=== PATIENT | female | born 1960 | race Caucasian/White ===

== ENCOUNTER → 2017-07-10 10:36 | Outpatient (CLI) | payer OTHER, SELFPAY ==
[2017-07-10 11:26] LABS: Absolute Lymphocyte Count 2.42 X10^3/ul (0.83-4.51); Basophil# 0.03 X10^3/uL; Basophil% 0.4 % (0-1); Eosinophils% 1.4 % (0-5); Hematocrit 41.8 % (37-47); Hemoglobin 13.7 g/dl (12.0-15.0); Lymphocyte # 2.42 X10^3/ul (4.0); Mean Corp Hgb Conc 32.8 g/gl (32-36); Mean Corpuscular Hgb 30.5 pg (27.0-32.0); Mean Corpuscular Volume 93.1 fL (81-99); Mean Platelet Vol. 9.3 fl (6.2-12.0); Monocyte# 0.57 X10^3/uL; Neutrophil # 3.98 X10^3/uL (2.7-7.7); Neutrophil % 56.1 % (47-70); Platelet Count 270 K/mm3 (150-450); RBC Distribution Width CV 13.1 % (11.6-14.6); RBC Distribution Width SD 44.5 fl (35.1-43.9); Red Blood Count 4.49 M/mm3 (4.2-5.4); White Blood Count 7.1 K/mm3 (4.4-11.0)
[2017-07-10 11:28] LABS: POSITIVE COUNT NO; POSITIVE DIFFERENTIAL NO; POSITIVE MORPHOLOGY NO
[2017-07-10 11:58] LABS: AST(SGOT) 18 U/L (15-37); Alanine Aminotransfer ALT/SGPT 39 U/L (13-56); Albumin, Serum 3.6 g/dL (3.2-5.0); Alkaline Phosphatase 116 U/L (45-117); Anion Gap 9 (5-15); BUN 15 mg/dL (7-18); BUN/Creat Ratio 17.5 RATIO (10-20); Bilirubin, Direct 0.16 mg/dL (0.00-0.30); Calcium,Total 8.5 mg/dL (8.5-10.1); Chloride 108 mmol/L (98-107); Cholesterol 178 mg/dL (200); Creatinine, Serum 0.86 mg/dL (0.55-1.02); EST Glomerular Filtration Rate 73 mL/min (>60); Est Glom Filt Rate - Afr Amer 88 mL/min (>60); Globulin 4.3 g/dL (2.2-4.2); Glucose 95 mg/dL (74-106); High Density Lipoprotein 44 mg/dL; Protein, Total 7.9 g/dL (6.4-8.2); Sodium Level 143 mmol/L (136-145); Thyroid Stim Hormone (TSH) 2.14 uIU/mL (0.358-3.74); Triglycerides 118 mg/dL; Very Low Density Lipoprotein 24 mg/dL (5-40)
== END ==
PROVIDERS: Family Provider Family Medicine; PCP Family Medicine; Visit Provider Internal Medicine Cardiovascular Disease
DX: R53.83 Other fatigue (principal)
CPT/HCPCS: 80048; 80061; 80076; 84443; 85025

== ENCOUNTER → 2017-09-15 09:30 | Outpatient (CLI) | payer OTHER, SELFPAY ==
--- NOTE | 2017-09-15 09:30 | DT_ITS ---
This patient was seen during an EMR downtime September 13, 2017 - September 20, 2017. This patient may have a combination of paper and electronic documentation or all paper documentation. All documentation is viewable within the e-chart portion of [facility] for each patient visit.
--- NOTE | 2017-09-15 09:30 | LES_PTH ---
PATIENT: TRISHA NARVAEZ LOC: [facility] U#:[id number] AGE/SX: 64/F ROOM: RE09/15/[address]: Dr. Varsha Harrell MD : 1960 BED: DIS: SPEC #: [id number] RECD: 09/15/17 09:38 STATUS: LATRELL RAISA #: [id number] MARIE: 09/15/17 09:[address]: Varsha Harrell DEPT: SURGICAL PATHOLOGY RECD BY: Jeovanny Hernandez Tissues: Skin of face, NOS Procedures: Surgery Specimen Level IV HEADER OPERATION: Removal of facial lesion PRE-OP DIAGNOSIS: Neoplasm of uncertain behavior TISSUE SUBMITTED: Lesion left cheek MICROSCOPIC DIAGNOSIS Left cheek lesion, biopsy: Inflamed seborrheic keratosis. Negative for malignancy. SJ:vicki 09/21/17 MICROSCOPIC DESCRIPTION Slides are reviewed. GROSS DESCRIPTION Received in fixative is one container labeled with the patient's name and designated lesion left cheek. The specimen consists of a piece of reyna-white skin measuring 1 x 0.7 x 0.2 cm. The specimen is inked and submitted entirely in one cassette. It will be bisected at the time of embedding. / SJ:rg TC:1 CPT: 84765
== END ==
PROVIDERS: Visit Provider Family Medicine
DX: D48.7 Neoplasm of uncertain behavior of other specified sites (principal)
CPT/HCPCS: 88305

== ENCOUNTER → 2019-03-02 10:09 | Outpatient (CLI) | payer OTHER, SELFPAY ==
[2018-06-13 08:45] VITALS: BMI 38.9
== END ==
PROVIDERS: Family Provider Family Medicine; PCP Family Medicine; Referring Provider Family Medicine; Visit Provider Family Medicine
DX: R31.9 Hematuria, unspecified (principal)
CPT/HCPCS: 87086; 87088; 87186

== ENCOUNTER → 2019-05-08 07:31 | Outpatient (CLI) | payer OTHER, SELFPAY ==
[2018-06-13 08:45] VITALS: BMI 38.9
--- NOTE | 2019-05-08 07:32 | BI_ITS ---
MAMMOGRAPHY - BILATERAL SCREENING REASON FOR EXAM: Female, 58 years old. Routine annual screening examination. PERTINENT HISTORY: Non-contributory. TECHNIQUE: Digital bilateral breast sridhar (3D mammographic acquisition) in the CC and MLO projections. 2-D mediolateral oblique (MLO) and craniocaudad (CC) views of both breasts were obtained. CAD: Full Field Digital Mammography with Computer Added Detection was performed. COMPARISON: Comparison is made with prior examination dated January 15, 2017 and November 10, 2012. FINDINGS: Breast Composition: The breasts are heterogeneously dense, which may obscure small masses. There are no dominant masses or suspicious calcifications. Stable benign appearing bilateral axillary lymph nodes. No other significant abnormalities are identified. There has been no significant change since the prior study. BI/SCREEN MAMM (CAD) W/SRIDHAR BILAT IMPRESSION: Stable bilateral screening mammogram. Yearly follow-up mammogram recommended. (A) ASSESSMENT CATEGORY: BIRADS Category 2: Benign. A letter regarding these results will be sent to the patient by the facility within 30 days. Approximately 10% of breast cancers are not detected by mammography. A normal mammogram should not delay biopsy of a clinically suspicious abnormality. [id number] Electronically Signed: Vick Moya, at 8:45 EST , Service support ,
== END ==
PROVIDERS: Family Provider Family Medicine; PCP Family Medicine; Referring Provider Obstetrics & Gynecology; Visit Provider Obstetrics & Gynecology
DX: Z12.31 Encounter for screening mammogram for malignant neoplasm of breast (principal)
CPT/HCPCS: 77063; 77067

== ENCOUNTER → 2019-05-22 15:59 | Outpatient (CLI) | payer OTHER, SELFPAY ==
[2018-06-13 08:45] VITALS: BMI 38.9
[2019-05-22 18:12] LABS: Absolute Lymphocyte Count 2.25 X10^3/uL (0.83-4.51); Absolute Neutrophil Count 4.2 X10^3/uL (2.0-7.7); Basophil# 0.03 X10^3/uL; Basophil% 0.4 % (0-1); Eosinophil# 0.07 X10^3/uL; Hematocrit 43.3 % (37-47); Hemoglobin 14.1 g/dL (12.0-15.0); Lymphocyte # 2.25 X10^3/ul (4.0); Lymphocyte % 31.4 % (19-41); Mean Corp Hgb Conc 32.6 g/dL (32-36); Mean Corpuscular Hgb 30.5 pg (27.0-32.0); Mean Corpuscular Volume 93.7 fL (81-99); Mean Platelet Vol. 9.7 fl (6.2-12.0); Monocyte# 0.55 X10^3/uL; Monocyte% 7.7 % (0-10); NRBC Flagged by Analyzer 0 % (0-5); Neutrophil # 4.24 X10^3/uL (2.7-7.7); Neutrophil % 59.1 % (47-70); Platelet Count 295 K/mm3 (150-450); RBC Distribution Width CV 12.8 % (11.6-14.6); RBC Distribution Width SD 43.9 fl (35.1-43.9); Red Blood Count 4.62 M/mm3 (4.2-5.4); White Blood Count 7.2 K/mm3 (4.4-11.0)
[2019-05-22 18:37] LABS: ALB/GLOB Ratio 0.9 RATIO (0.9-2.4); AST(SGOT) 20 U/L (15-37); Alanine Aminotransfer ALT/SGPT 41 U/L (13-56); Albumin, Serum 3.9 g/dL (3.2-5.0); Alkaline Phosphatase 101 U/L (45-117); Anion Gap 5 (5-15); BUN 15 mg/dL (7-18); BUN/Creat Ratio 14.6 RATIO (10-20); Calcium,Total 9.5 mg/dL (8.5-10.1); Chloride 106 mmol/L (98-107); Creatinine, Serum 1.03 mg/dL (0.55-1.02); EST Glomerular Filtration Rate 59 mL/min (>60); Est Glom Filt Rate - Afr Amer 71 mL/min (>60); Globulin 4.4 g/dL (2.2-4.2); Glucose 115 mg/dL (74-106); Protein, Total 8.3 g/dL (6.4-8.2); Sodium Level 138 mmol/L (136-145); Thyroid Stim Hormone (TSH) 4.89 uIU/mL (0.358-3.74)
== END ==
PROVIDERS: PCP Family Medicine; Referring Provider Family Medicine; Visit Provider Family Medicine
DX: I10 Essential (primary) hypertension (principal); R63.5 Abnormal weight gain
CPT/HCPCS: 36415; 80053; 84443; 85025

== ENCOUNTER → 2019-08-16 16:08 | Outpatient (CLI) | payer OTHER, SELFPAY ==
[2019-06-16 08:31] VITALS: BMI 38.1
[2019-08-16 17:46] LABS: Absolute Lymphocyte Count 2.38 X10^3/uL (0.83-4.51); Absolute Neutrophil Count 5.4 X10^3/uL (2.0-7.7); Basophil# 0.04 X10^3/uL; Basophil% 0.5 % (0-1); Eosinophil# 0.06 X10^3/uL; Eosinophils% 0.7 % (0-5); Hematocrit 42.6 % (37-47); Hemoglobin 13.8 g/dL (12.0-15.0); Lymphocyte # 2.38 X10^3/ul (4.0); Lymphocyte % 27.3 % (19-41); Mean Corp Hgb Conc 32.4 g/dL (32-36); Mean Corpuscular Hgb 30.6 pg (27.0-32.0); Mean Corpuscular Volume 94.5 fL (81-99); Monocyte% 9.2 % (0-10); NRBC Flagged by Analyzer 0 % (0-5); Neutrophil # 5.43 X10^3/uL (2.7-7.7); Neutrophil % 62.1 % (47-70); Platelet Count 273 K/mm3 (150-450); RBC Distribution Width CV 13.2 % (11.6-14.6); RBC Distribution Width SD 45.1 fl (35.1-43.9); Red Blood Count 4.51 M/mm3 (4.2-5.4); White Blood Count 8.7 K/mm3 (4.4-11.0)
[2019-08-16 18:10] LABS: ALB/GLOB Ratio 0.8 RATIO (0.9-2.4); AST(SGOT) 18 U/L (15-37); Alanine Aminotransfer ALT/SGPT 37 U/L (13-56); Albumin, Serum 3.6 g/dL (3.2-5.0); Alkaline Phosphatase 104 U/L (45-117); Anion Gap 6 (5-15); BUN 15 mg/dL (7-18); BUN/Creat Ratio 16.7 RATIO (10-20); Chloride 105 mmol/L (98-107); EST Glomerular Filtration Rate 69 mL/min (>60); Est Glom Filt Rate - Afr Amer 83 mL/min (>60); Globulin 4.3 g/dL (2.2-4.2); Glucose 98 mg/dL (74-106); Potassium 4.3 mmol/L (3.5-5.1); Protein, Total 7.9 g/dL (6.4-8.2); Sodium Level 139 mmol/L (136-145); Thyroid Stim Hormone (TSH) 1.33 uIU/mL (0.358-3.74)
== END ==
PROVIDERS: PCP Family Medicine; Referring Provider Family Medicine; Visit Provider Family Medicine
DX: I10 Essential (primary) hypertension (principal); R63.5 Abnormal weight gain
CPT/HCPCS: 36415; 80053; 84443; 85025

== ENCOUNTER 2019-09-20 15:00 | Outpatient (RCR) | payer OTHER, SELFPAY ==
[2019-06-16 08:31] VITALS: BMI 38.1
--- NOTE | 2019-08-09 16:53 | HP.PTEVAL ---
Patient's Visit Information TRISHA NARVAEZ is a 58 year old F referred to Physical Therapy by Landen Chavez MD with a diagnosis of LUMBAR RADICULOPATHY. Date of Evaluation: 08/09/19 Physical Therapist: Doug Her, PT, Cert MDT, OCS - Visit Plan Frequency: 2x /Week Duration: 4 Weeks Plan: PT INTERVENTIONS ROBERT EX'S,DLS ABD/BACK,POSTURAL EX'S,MANUAL THERAPY ,MODALTIES - Subjective This 58 y/o female presents to physical therapy with lumbar radiculopathy. Patient to has had lumbar pain with radicular right leg since June . Patient symptoms where incidous onset. Patient seen tried injections in gluteus for bursitus. Then seen DR Chavez tried 5 day pack predisone. Aggraveting factors driving,turning to right ,sitting,putting on socks.Alleviating factors walking,predisone,ice pack. C/O parathesia right foot. Coughing/sneezing -. Bowel/bladder -. Symptoms affects sleeping. Patient pain affects ADL's ,job demnads and housework tasks. Patient symptoms affects QOL.Pain locates lateral hip mdial thigh,medial tibia. 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 SOCAIL: single - Pain Right Back Pain Intensity (Out of 10): 7 Pain Intensity Range: 10 Right Lower Extremity Pain Intensity (Out of 10): 7 Pain Intensity Range: 10 - Objective POSTURE: mild foward posture. GAIT: antagic gait right side mild foward posture reciprocal pattern. NEURO: c/o parathesia/tingling right foot,reflexes L3-4,L4-5 2/3. SYMMTRIES: right leg shorter uses heel lift. PALPATION: UNREMARKABLE. MMT: quads/hams/hip 4/5,ankle 4/5. LUMBAR ROM: flexion min loss,extension min loss,sie glides min loss. FLEXABLITY: HAMS WFL - Special Tests L/S Slump test left side: Negative L/S Slump test right side: Negative L/S Left Straight Leg Raise: Negative L/S Right Straight Leg Raise: Negative Lumbar Standing: Flexion - Mechanical Response: No effect Lumbar Standing: Flexion - Symptoms During Testing: Increases Lumbar Standing: Flexion - Symptoms After Testing: Worse Lumbar Standing: Extension - Mechanical Response: No effect Lumbar Standing: Extension - Symptoms During Testing: Decreases Lumbar Standing: Extension - Symptoms After Testing: Better Lumbar Standing: Right Side Glides - Mechanical Response: No effect Lumbar Standing: Right Side [place] - Symptoms During Testing: Increases Lumbar Standing: Right Side [place] - Symptoms After Testing: No worse Lumbar Standing: Left Side [place] - Mechanical Response: No effect Lumbar Standing: Left Side [place] - Symptoms During Testing: No effect Lumbar Standing: Left Side [place] - Symptoms After Testing: No effect Lumbar Lying: Flexion - Mechanical Response: No effect Lumbar Lying: Flexion - Symptoms During Testing: Increases Lumbar Lying: Flexion - Symptoms After Testing: Worse Lumbar Lying: Extension - Mechanical Response: No effect Lumbar Lying: Extension - Symptoms During Testing: Decreases Lumbar Lying: Extension - Symptoms After Testing: Better - Goals Goal 1:: Patient be Independant with HEP Goal Time Frame: 4-6 Weeks Goal 2:: Patient improve posture/body mechanics for ADLS' Goal Time Frame: 4-6 Weeks Goal 3:: Patient to decrease lumbar pain by 50% or > to improve FUNCTION. Goal Time Frame: 4-6 Weeks Goal 4:: Patient improve lumbar ROM for function of recovery. Goal Time Frame: 4-6 Weeks Goal 5:: Patient d/c to prohalaxis Goal Time Frame: 4-6 Weeks Goal 6:: Patient improve back owestry score by 5 points or > to improve QOL. Goal Time Frame: 4-6 Weeks - Rehabilitation Potential Physical Therapy Diagnosis: Patient impression with lumbar radiculopathy with derrangement below knee L3-4 disc with pain worse with postion bending ,sitting ,bettter with walking thus benifit from skilled PT Rehabilitation Potential: Good - Anticipated Interventions Patient/Client Instruction: Educate patient on: Condition, Plan of Care For the Purpose of:: To decrease pain, To increase ROM, To improve muscle performance and motor function, To improve ability to perform ADL's, To increase tolerance to activity/condition/position, To improve ability of physical actions for home/community/work/leisure, To improve health of tissue, To decrease soft tissue restriction, To increase flexibility/ROM, To improve ability to perform tasks related to life management Therapeutic Exercise to Include: Strength training, Body mechanics, Postural training, Flexibilty training, Dynamic Lumbar Stabilization, Robert Exercises For the Purpose of:: To decrease pain, To increase ROM, To improve muscle performance and motor function, To improve ability to perform ADL's, To increase tolerance to activity/condition/position, To improve ability of physical actions for home/community/work/leisure, To improve health of tissue, To decrease soft tissue restriction, To increase flexibility/ROM, To reduce risk of recurrence, To improve ability to perform tasks related to life management Manual Therapy Techniques to Include: Mobilization Comment: LUMBAR For the Purpose of:: To decrease pain, To increase ROM TENS: Yes IF ES: Yes Cryotherapy (ice pack, ice massage): Yes Thermo therapy (hot pack): Yes Ultrasound (thermal/non thermal): Yes For the Purpose of:: To decrease pain, To increase ROM, To improve nutrient delivery to tissue, To increase oxygenation perfusion, To improve health of tissue, To decrease soft tissue restriction, To increase flexibility/ROM Thank you for the opportunity to evaluate your patient. For Medicare and Medicare HMO plans, please review the plan of care and approve it. It will need to be FAXED BACK to us at [phone] for Medicare purposes. For Medicare only, by signing this I certify the plan of care. Please let me know if there are questions or concerns regarding this plan of care. Physician Signature: Date:
--- NOTE | 2019-09-20 15:44 | HP.PTEVAL_ITS ---
Patient's Visit Information TRISHA NARVAEZ is a 59 year old F referred to Physical Therapy by Dr. Landen Chavez MD with a diagnosis of LUMBAR RADICULOPATHY. Date of Evaluation: 08/09/19 Physical Therapist: Doug Her PT, Cert MDT, OCS - Visit Plan Frequency: 2x /Week Duration: 4 Weeks Plan: D/C TO HEP - Subjective This 58 y/o female presents to physical therapy with lumbar radiculopathy. Patient to has had lumbar pain with radicular right leg since June . Patient symptoms where incidous onset. Patient seen tried injections in gluteus for bursitus. Then seen DR Chavez tried 5 day pack predisone. Aggraveting factors driving,turning to right ,sitting,putting on socks.Alleviating factors walking,predisone,ice pack. C/O parathesia right foot. Coughing/sneezing -. Bowel/bladder -. Symptoms affects sleeping. Patient pain affects ADL's ,job demnads and housework tasks. Patient symptoms affects QOL.Pain locates lateral hip mdial thigh,medial tibia. 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 GAIT: antagic gait right side mild foward posture reciprocal pattern. NEURO: c/o parathesia/tingling right foot,reflexes L3-4,L4-5 2/3. SYMMTRIES: right leg shorter uses heel lift. PALPATION: UNREMARKABLE. MMT: quads/hams/hip 4/5,ankle 4/5. LUMBAR ROM: flexion min loss,extension min loss,sie glides min loss. FLEXABLITY: HAMS WFL - Special Tests L/S Slump test left side: Negative L/S Slump test right side: Negative L/S Left Straight Leg Raise: Negative L/S Right Straight Leg Raise: Negative Lumbar Standing: Flexion - Mechanical Response: No effect Lumbar Standing: Flexion - Symptoms During Testing: Increases Lumbar Standing: Flexion - Symptoms After Testing: Worse Lumbar Standing: Extension - Mechanical Response: No effect Lumbar Standing: Extension - Symptoms During Testing: Decreases Lumbar Standing: Extension - Symptoms After Testing: Better Lumbar Standing: Right Side [place] - Mechanical Response: No effect Lumbar Standing: Right Side [place] - Symptoms During Testing: Increases Lumbar Standing: Right Side [place] - Symptoms After Testing: No worse Lumbar Standing: Left Side [place] - Mechanical Response: No effect Lumbar Standing: Left Side [place] - Symptoms During Testing: No effect Lumbar Standing: Left Side [place] - Symptoms After Testing: No effect Lumbar Lying: Flexion - Mechanical Response: No effect Lumbar Lying: Flexion - Symptoms During Testing: Increases Lumbar Lying: Flexion - Symptoms After Testing: Worse Lumbar Lying: Extension - Mechanical Response: No effect Lumbar Lying: Extension - Symptoms During Testing: Decreases Lumbar Lying: Extension - Symptoms After Testing: Better - Goals Goal 1:: Patient be Independant with HEP Goal Time Frame: 4-6 Weeks Goal 2:: Patient improve posture/body mechanics for ADLS' Goal Time Frame: 4-6 Weeks Goal 3:: Patient to decrease lumbar pain by 50% or > to improve FUNCTION. Goal Time Frame: 4-6 Weeks Goal 4:: Patient improve lumbar ROM for function of recovery. Goal Time Frame: 4-6 Weeks Goal 5:: Patient d/c to prohalaxis Goal Time Frame: 4-6 Weeks Goal 6:: Patient improve back owestry score by 5 points or > to improve QOL. Goal Time Frame: 4-6 Weeks - Rehabilitation Potential Physical Therapy Diagnosis: Patient impression with lumbar radiculopathy with derrangement below knee L3-4 disc with pain worse with postion bending ,sitting ,bettter with walking thus benifit from skilled PT Rehabilitation Potential: Good - Anticipated Interventions Patient/Client Instruction: Educate patient on: Condition, Plan of Care For the Purpose of:: To decrease pain, To increase ROM, To improve muscle performance and motor function, To improve ability to perform ADL's, To increase tolerance to activity/condition/position, To improve ability of physical actions for home/community/work/leisure, To improve health of tissue, To decrease soft tissue restriction, To increase flexibility/ROM, To improve ability to perform tasks related to life management Therapeutic Exercise to Include: Strength training, Body mechanics, Postural training, Flexibilty training, Dynamic Lumbar Stabilization, Obdulio Exercises For the Purpose of:: To decrease pain, To increase ROM, To improve muscle performance and motor function, To improve ability to perform ADL's, To increase tolerance to activity/condition/position, To improve ability of physical actions for home/community/work/leisure, To improve health of tissue, To decrease soft tissue restriction, To increase flexibility/ROM, To reduce risk of recurrence, To improve ability to perform tasks related to life management Manual Therapy Techniques to Include: Mobilization Comment: LUMBAR For the Purpose of:: To decrease pain, To increase ROM TENS: Yes IF ES: Yes Cryotherapy (ice pack, ice massage): Yes Thermo therapy (hot pack): Yes Ultrasound (thermal/non thermal): Yes For the Purpose of:: To decrease pain, To increase ROM, To improve nutrient delivery to tissue, To increase oxygenation perfusion, To improve health of tissue, To decrease soft tissue restriction, To increase flexibility/ROM Thank you for the opportunity to evaluate your patient. For Medicare and Medicare HMO plans, please review the plan of care and approve it. It will need to be FAXED BACK to us at [phone] for Medicare purposes. For Medicare only, by signing this I certify the plan of care. Please let me know if there are questions or concerns regarding this plan of care. Physician Signature: Date:
--- NOTE | 2019-09-20 15:44 | HP.PTDCSUM ---
It has been my pleasure to treat TRISHA NARVAEZ referred by Dr. Landen Chavez MD, with the diagnosis of LUMBAR RADICULOPATHY for a total of 9 visit(s). Discharge Date: 09/20/19 Please see the following information for a summary of their discharge status. Subjective: Occassional twinge in back. Did alot driving no pain Right Back Pain Intensity (Out of 10): 0 Right Lower Extremity Pain Intensity (Out of 10): 0 % Improvement: 75 Objective/Function: POSTURE: mild foward posture. GAIT: reciprocal pattern. NEURO: INTACT. MMT: quads/hams/hip 4/5,ankle 4/5. LUMBAR ROM: WFL Goal 1:: Patient be Independant with HEP Goal Progress: Goal Met Goal 2:: Patient improve posture/body mechanics for ADLS' Goal Progress: Goal Met Goal 3:: Patient to decrease lumbar pain by 50% or > to improve FUNCTION. Goal Progress: Goal Met Goal 4:: Patient improve lumbar ROM for function of recovery. Goal Progress: Goal Met Goal 5:: Patient d/c to prohalaxis Goal Progress: Goal Met Goal 6:: Patient improve back owestry score by 5 points or > to improve QOL. Goal Progress: Goal Met Plan: D/C TO HEP Discharge Comments: HEP If there are questions or concerns regarding this patient's physical therapy, please feel free to call me at [phone]. Thank you for the referral of this patient. Sincerely, Doug Her, PT, Cert MDT, OCS
== END 2019-09-20 19:00 | disposition home or self-care (01) ==
LOC: PT 15:00
PROVIDERS: PCP Family Medicine; Referring Provider Family Medicine; Visit Provider Family Medicine
DX: M54.16 Radiculopathy, lumbar region (principal)
CPT/HCPCS: 97014; 97035; 97110; 97162; 97164; G0283

== ENCOUNTER → 2019-10-26 | Outpatient (CLI) | payer OTHER, SELFPAY ==
[2019-10-26 12:24] VITALS: BMI 38.1
[2019-11-10 17:03] LABS: HPV APTIMA, High Risk Negative (Negative)
== END | disposition home or self-care (01) ==
LOC: LABSPEC 17:21
PROVIDERS: PCP Family Medicine; Referring Provider Obstetrics & Gynecology; Visit Provider Obstetrics & Gynecology
DX: Z12.4 Encounter for screening for malignant neoplasm of cervix (principal)
CPT/HCPCS: 87624; 88175; G0145

== ENCOUNTER → 2020-03-13 16:11 | Outpatient (CLI) | payer OTHER, SELFPAY ==
[2020-02-21 11:58] VITALS: BMI 37.9
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
== END ==
PROVIDERS: PCP Family Medicine; Referring Provider Orthopaedic Surgery; Visit Provider Orthopaedic Surgery
DX: M48.061 Spinal stenosis, lumbar region without neurogenic claudication (principal)
CPT/HCPCS: 72148

== ENCOUNTER 2020-05-03 13:35 | Outpatient (RCR) | payer OTHER, SELFPAY | END 2020-05-03 23:59 | LOC: IMMUN 13:35 | PROVIDERS: PCP Family Medicine; Visit Provider Family Medicine | DX: Z23 Encounter for immunization (principal) | CPT/HCPCS: 0011A; 0012A; 91301 ==

== ENCOUNTER → 2020-05-16 07:55 | Outpatient (CLI) | payer OTHER, SELFPAY ==
--- NOTE | 2020-05-16 07:56 | BI_ITS ---
MAMMOGRAPHY - BILATERAL SCREENING REASON FOR EXAM: Female, 59 years old. Routine annual screening examination. PERTINENT HISTORY: Non-contributory. TECHNIQUE: Digital bilateral breast sridhar (3D mammographic acquisition) in the CC and MLO projections. 2-D mediolateral oblique (MLO) and craniocaudad (CC) views of both breasts were obtained. CAD: Full Field Digital Mammography with Computer Added Detection was performed. COMPARISON: Comparison is made with prior study dated 11/06/2019 and 01/15/2017. FINDINGS: Breast Composition: The breasts are heterogeneously dense, which may obscure small masses. 6.4 mm x 8.9 mm well-defined nodule in the inferior medial aspect of the right breast. Correlation with ultrasound is recommended. Stable benign-appearing bilateral axillary lymph nodes. No other significant abnormalities are identified. BI/SCRN MAMM (CAD)W/SRIDHAR BILAT IMPRESSION: 6.4 mm x 8.9 mm well-defined nodule in the inferior medial aspect of the right breast. Ultrasound is recommended. ASSESSMENT CATEGORY: BIRADS Category 0: Incomplete. Need additional imaging evaluation. A letter regarding these results will be sent to the patient by the facility within 30 days. Approximately 10% of breast cancers are not detected by mammography. A normal mammogram should not delay biopsy of a clinically suspicious abnormality. [id number] Electronically Signed: Vick Moya MD at 9:09 EST , Service support ,
== END ==
PROVIDERS: PCP Family Medicine; Referring Provider Obstetrics & Gynecology; Visit Provider Obstetrics & Gynecology
DX: Z12.31 Encounter for screening mammogram for malignant neoplasm of breast (principal); N63.10 Unspecified lump in the right breast, unspecified quadrant
CPT/HCPCS: 77063; 77067

== ENCOUNTER → 2020-05-17 09:25 | Outpatient (CLI) | payer OTHER, SELFPAY ==
--- NOTE | 2020-05-17 09:27 | US_ITS ---
STUDY: ULTRASOUND BREAST - RIGHT REASON FOR EXAM: Female, 59 years old. Abnormal screening mammogram. TECHNIQUE: Axial and longitudinal images of the RIGHT breast were performed with a high resolution ultrasound transducer. # OF IMAGES: 11 COMPARISON: Comparison is made with prior mammogram dated 05/16/2020. FINDINGS: RIGHT Breast: The mammographic abnormality corresponds to a 7 mm x 8 mm x 6 mm cyst at the 4 o''clock position of the breast at 2 cm from the nipple. US/Breast Limited Unilateral IMPRESSION: The mammographic abnormality corresponds to a 7 mm x 8 mm x 6 mm cyst at the 4 o''clock position of the breast at 2 cm from the nipple. ASSESSMENT CATEGORY: BIRADS Category 2: Benign. A letter regarding these results will be sent to the patient by the facility within 30 days. Electronically Signed: Vick Moya MD at 10:41 EST , Service support ,
== END ==
PROVIDERS: PCP Family Medicine; Referring Provider Obstetrics & Gynecology; Visit Provider Obstetrics & Gynecology
DX: R92.8 Other abnormal and inconclusive findings on diagnostic imaging of breast (principal)
CPT/HCPCS: 76642

== ENCOUNTER → 2020-06-17 09:11 | Outpatient (CLI) | payer OTHER, SELFPAY ==
[2020-06-17 08:41] VITALS: BMI 39.2
[2020-06-17 11:44] LABS: AST(SGOT) 21 U/L (15-37); Alanine Aminotransfer ALT/SGPT 43 U/L (13-56); Albumin, Serum 3.7 g/dL (3.2-5.0); Alkaline Phosphatase 110 U/L (45-117); Bilirubin, Direct 0.14 mg/dL (0.00-0.30); Cholesterol 233 mg/dL (200); Globulin 4.5 g/dL (2.2-4.2); High Density Lipoprotein 55 mg/dL; Protein, Total 8.2 g/dL (6.4-8.2); Triglycerides 121 mg/dL; Very Low Density Lipoprotein 24 mg/dL (5-40)
== END ==
PROVIDERS: PCP Family Medicine; Referring Provider Nurse Practitioner Family; Visit Provider Nurse Practitioner Family
DX: E78.5 Hyperlipidemia, unspecified (principal)
CPT/HCPCS: 36415; 80061; 80076

== ENCOUNTER → 2020-07-01 09:35 | Outpatient (CLI) | payer OTHER, SELFPAY ==
[2020-06-17 08:41] VITALS: BMI 39.2
[2020-07-01 12:43] LABS: Anion Gap 6 (5-15); BUN 17 mg/dL (7-18); BUN/Creat Ratio 16.5 RATIO (10-20); Chloride 106 mmol/L (98-107); Cholesterol 173 mg/dL (200); Creatinine, Serum 1.03 mg/dL (0.55-1.02); EST Glomerular Filtration Rate 58 mL/min (>60); Est Glom Filt Rate - Afr Amer 71 mL/min (>60); Glucose 102 mg/dL (74-106); High Density Lipoprotein 41 mg/dL; Sodium Level 140 mmol/L (136-145); T4 Total, Thyroxin 9.1 ug/dL (4.8-13.9); Thyroid Stim Hormone (TSH) 1.76 uIU/mL (0.358-3.74); Triglycerides 216 mg/dL; Very Low Density Lipoprotein 43 mg/dL (5-40)
== END ==
PROVIDERS: PCP Family Medicine; Referring Provider Family Medicine; Visit Provider Family Medicine
DX: I10 Essential (primary) hypertension (principal); E03.9 Hypothyroidism, unspecified
CPT/HCPCS: 36415; 80048; 80061; 84436; 84443

== ENCOUNTER → 2020-09-04 14:52 | Outpatient (CLI) | payer OTHER, SELFPAY ==
[2020-06-17 08:41] VITALS: BMI 39.2
--- NOTE | 2020-09-04 14:55 | RAD_ITS ---
STUDY: X-RAY - RIGHT KNEE REASON FOR EXAM: Female, 60 years old. KNEE PAIN TECHNIQUE: 4 view(s) of the knee. COMPARISON: 11/14/2010 FINDINGS: Normal visualized distal femur. Normal visualized proximal tibia and fibula. Normal proximal tibiofibular articulation. There is moderate degenerative arthrosis of the medial femorotibial compartment with moderate joint space narrowing. There is mild degenerative arthrosis of the lateral femorotibial compartment. There is mild degenerative arthrosis of the patellofemoral articulation. The soft tissue structures are unremarkable. RAD/Knee 4 or More Views IMPRESSION: Degenerative arthrosis. Electronically Signed: Jeovanny Sloan MD at 9:24 EDT Tel , Service support ,
== END ==
PROVIDERS: PCP Family Medicine; Referring Provider Family Medicine; Visit Provider Family Medicine
DX: M17.11 Unilateral primary osteoarthritis, right knee (principal)
CPT/HCPCS: 73564

== ENCOUNTER → 2020-11-07 11:05 | Outpatient (CLI) | payer OTHER, SELFPAY ==
[2020-09-30 09:40] VITALS: BMI 36.3
[2020-11-07 12:17] LABS: Absolute Lymphocyte Count 1.79 X10^3/uL (0.83-4.51); Absolute Neutrophil Count 8.7 X10^3/uL (2.0-7.7); Basophil# 0.03 X10^3/uL; Basophil% 0.3 % (0-1); Eosinophil# 0.06 X10^3/uL; Eosinophils% 0.5 % (0-5); Hematocrit 41.8 % (37-47); Hemoglobin 13.7 g/dL (12.0-15.0); Lymphocyte # 1.79 X10^3/ul (0.83-4.51); Lymphocyte % 15.7 % (19-41); Mean Corp Hgb Conc 32.8 g/dL (32-36); Mean Corpuscular Hgb 30.4 pg (27.0-32.0); Mean Corpuscular Volume 92.7 fL (81-99); Mean Platelet Vol. 9.6 fl (6.2-12.0); Monocyte# 0.77 X10^3/uL; Monocyte% 6.8 % (0-10); NRBC Flagged by Analyzer 0 % (0-5); Neutrophil # 8.68 X10^3/uL (2.7-7.7); Neutrophil % 76.3 % (47-70); Platelet Count 277 K/mm3 (150-450); RBC Distribution Width CV 13.3 % (11.6-14.6); RBC Distribution Width SD 45.2 fl (35.1-43.9); Red Blood Count 4.51 M/mm3 (4.2-5.4); White Blood Count 11.4 K/mm3 (4.4-11.0)
[2020-11-07 12:47] LABS: ALB/GLOB Ratio 0.9 RATIO (0.9-2.4); AST(SGOT) 16 U/L (15-37); Alanine Aminotransfer ALT/SGPT 40 U/L (13-56); Albumin, Serum 3.7 g/dL (3.2-5.0); Alkaline Phosphatase 109 U/L (45-117); Anion Gap 6 (5-15); BUN 12 mg/dL (7-18); BUN/Creat Ratio 13.3 RATIO (10-20); Calcium,Total 8.9 mg/dL (8.5-10.1); Chloride 105 mmol/L (98-107); EST Glomerular Filtration Rate 68 mL/min (>60); Est Glom Filt Rate - Afr Amer 82 mL/min (>60); Globulin 4.3 g/dL (2.2-4.2); Glucose 91 mg/dL (74-106); Potassium 4.1 mmol/L (3.5-5.1); Sodium Level 140 mmol/L (136-145)
== END ==
PROVIDERS: PCP Family Medicine; Referring Provider Family Medicine; Visit Provider Family Medicine
DX: N39.0 Urinary tract infection, site not specified (principal); K57.92 Diverticulitis of intestine, part unspecified, without perforation or abscess without bleeding
CPT/HCPCS: 36415; 80053; 85025; 87077; 87086; 87088; 87186

== ENCOUNTER → 2020-11-07 11:52 | Outpatient (CLI) | payer OTHER, SELFPAY ==
[2020-09-30 09:40] VITALS: BMI 36.3
--- NOTE | 2020-11-07 14:11 | CT_ITS ---
STUDY: CT ABDOMEN AND PELVIS WITH CONTRAST REASON FOR EXAM: Female, 60 years old. DIVERTICULITIS RADIATION DOSAGE (If Supplied By Facility): CTDIvol = ( 16.90 ) mGy, DLP = ( 1071.24 ) mGycm TECHNIQUE: Transaxial images were obtained from the dome of the diaphragm to the symphysis pubis with oral contrast. Oral and amp; IV Gastrografin and amp; 100mL Isovue-300 was administered. Sagittal and coronal images were reconstructed. Individualized dose optimization techniques were used for this CT. COMPARISON: Comparison is made with prior study dated 02/08/2013. FINDINGS: The visualized lung bases are unremarkable. The visualized portions of the heart are within normal limits. There is decreased attenuation of the liver consistent with steatosis. The patient is status post cholecystectomy. Normal spleen. Normal pancreas. The patient is status post left adrenalectomy. Normal right kidney. There is a 7.2 cm x 4 cm cyst in the upper midportion of the left kidney. Normal visualized stomach. Normal small intestine. Normal colon. The appendix is visualized and appears normal. Normal abdominal aorta. Normal inferior vena cava. Normal retroperitoneum. Normal urinary bladder. There is a small umbilical hernia containing fat. Normal osseous structures. CT/Abdomen/Pelvis WITH Contrast IMPRESSION: No evidence of diverticulitis. Electronically Signed: Vick Moya MD at 15:31 EDT , Service support ,
[2020-11-07 14:16] LABS: CREATININE FINGERSTICK 0.9 mg/dL (0.55-1.02); EGFR FINGERSTICK > 60.0000 mL/min (>60)
== END ==
PROVIDERS: PCP Family Medicine; Referring Provider Family Medicine; Visit Provider Family Medicine
DX: K57.92 Diverticulitis of intestine, part unspecified, without perforation or abscess without bleeding (principal)
CPT/HCPCS: 74177; Q9967

== ENCOUNTER → 2021-03-05 11:38 | Outpatient (CLI) | payer OTHER, SELFPAY ==
[2021-03-05 12:08] LABS: Hematocrit 41.9 % (37-47); Hemoglobin 14.3 g/dL (12.0-15.0); Mean Corp Hgb Conc 34.1 g/dL (32-36); Mean Corpuscular Hgb 31.4 pg (27.0-32.0); Mean Corpuscular Volume 92.1 fL (81-99); Mean Platelet Vol. 9.1 fl (6.2-12.0); Platelet Count 257 K/mm3 (150-450); RBC Distribution Width CV 12.5 % (11.6-14.6); RBC Distribution Width SD 42.2 fl (35.1-43.9); Red Blood Count 4.55 M/mm3 (4.2-5.4); White Blood Count 7.2 K/mm3 (4.4-11.0)
[2021-03-05 13:01] LABS: AST(SGOT) 15 U/L (15-37); Alanine Aminotransfer ALT/SGPT 31 U/L (13-56); Albumin, Serum 3.5 g/dL (3.2-5.0); Alkaline Phosphatase 113 U/L (45-117); Anion Gap 8 (5-15); BUN 17 mg/dL (7-18); BUN/Creat Ratio 17.3 RATIO (10-20); Bilirubin, Direct 0.16 mg/dL (0.00-0.30); Calcium,Total 9.1 mg/dL (8.5-10.1); Chloride 104 mmol/L (98-107); Cholesterol 209 mg/dL (200); Creatinine, Serum 0.98 mg/dL (0.55-1.02); EST Glomerular Filtration Rate 62 mL/min (>60); Est Glom Filt Rate - Afr Amer 75 mL/min (>60); Globulin 4.6 g/dL (2.2-4.2); Glucose 102 mg/dL (74-106); High Density Lipoprotein 49 mg/dL; Potassium 4.4 mmol/L (3.5-5.1); Protein, Total 8.1 g/dL (6.4-8.2); Sodium Level 140 mmol/L (136-145); T4 Total, Thyroxin 11.9 ug/dL (4.8-13.9); Thyroid Stim Hormone (TSH) 1.76 uIU/mL (0.358-3.74); Triglycerides 75 mg/dL; Very Low Density Lipoprotein 15 mg/dL (5-40)
== END ==
PROVIDERS: PCP Family Medicine; Referring Provider Nurse Practitioner Family; Visit Provider Nurse Practitioner Family
DX: R00.2 Palpitations (principal); E78.5 Hyperlipidemia, unspecified; E03.9 Hypothyroidism, unspecified
CPT/HCPCS: 36415; 80048; 80061; 80076; 83735; 84436; 84443; 85027

== ENCOUNTER 2021-05-21 07:54 | Outpatient (CLI) | payer OTHER, SELFPAY ==
--- NOTE | 2021-05-21 07:57 | BI_ITS ---
MAMMOGRAPHY - BILATERAL SCREENING REASON FOR EXAM: Female, 60 years old. Routine annual screening examination. PERTINENT HISTORY: Non-contributory. TECHNIQUE: Digital bilateral breast sridhar (3D mammographic acquisition) in the CC and MLO projections. 2-D mediolateral oblique (MLO) and craniocaudad (CC) views of both breasts were obtained. CAD: Full Field Digital Mammography with Computer Added Detection was performed. COMPARISON: Comparison is made with prior study 05/16/2020 and 05/08/2019. FINDINGS: Breast Composition: The breasts are heterogeneously dense, which may obscure small masses. There are no dominant masses or suspicious calcifications. Stable 6.4 mm x 8 mm well-defined nodule in the inferior medial aspect of the right breast. This was demonstrated to be a small cyst on prior ultrasound. No other significant abnormalities are identified. There has been no significant change since the prior study. BI/SCRN MAMM (CAD)W/SRIDHAR BILAT IMPRESSION: Stable bilateral screening mammogram. Yearly follow-up mammogram recommended. (A) ASSESSMENT CATEGORY: BIRADS Category 2: Benign. A letter regarding these results will be sent to the patient by the facility within 30 days. Approximately 10% of breast cancers are not detected by mammography. A normal mammogram should not delay biopsy of a clinically suspicious abnormality. [id number] Electronically Signed: Vick Moya MD at 9:16 EST ,
== END 2021-05-21 23:59 | disposition home or self-care (01) ==
LOC: OPBI 07:56
PROVIDERS: PCP Family Medicine; Referring Provider Nurse Practitioner Women's Health; Visit Provider Nurse Practitioner Women's Health
DX: Z12.31 Encounter for screening mammogram for malignant neoplasm of breast (principal)
CPT/HCPCS: 77063; 77067

== ENCOUNTER → 2022-01-09 | Outpatient (CLI) | payer OTHER, SELFPAY ==
[2022-01-09 18:11] LABS: Anion Gap 7 (5-15); BUN 15 mg/dL (7-18); BUN/Creat Ratio 15.7 RATIO (10-20); Calcium,Total 9.2 mg/dL (8.5-10.1); Chloride 107 mmol/L (98-107); Creatinine, Serum 0.96 mg/dL (0.55-1.02); EST Glomerular Filtration Rate 63 mL/min (>60); Est Glom Filt Rate - Afr Amer 76 mL/min (>60); Glucose 100 mg/dL (74-106); Potassium 4.5 mmol/L (3.5-5.1); Sodium Level 141 mmol/L (136-145); Thyroid Stim Hormone (TSH) 1.76 uIU/mL (0.358-3.74)
== END | disposition home or self-care (01) ==
LOC: MFPLAB 10:34
PROVIDERS: PCP Family Medicine; Referring Provider Family Medicine; Visit Provider Family Medicine
DX: I10 Essential (primary) hypertension (principal); E03.9 Hypothyroidism, unspecified
CPT/HCPCS: 36415; 80048; 84436; 84443

== ENCOUNTER → 2022-05-26 | Outpatient (CLI) | payer OTHER, SELFPAY ==
--- NOTE | 2022-05-26 07:40 | BI_ITS ---
MAMMOGRAPHY - BILATERAL SCREENING REASON FOR EXAM: Female, 61 years old. Routine annual screening examination. PERTINENT HISTORY: Non-contributory. TECHNIQUE: Digital bilateral breast sridhar (3D mammographic acquisition) in the CC and MLO projections. 2-D mediolateral oblique (MLO) and craniocaudad (CC) views of both breasts were obtained. CAD: Full Field Digital Mammography with Computer Added Detection was performed. COMPARISON: Comparison is made with prior study dated 05/21/2021 and 05/16/2020. FINDINGS: Breast Composition: The breasts are heterogeneously dense, which may obscure small masses. There are no dominant masses or suspicious calcifications. Stable small benign-appearing bilateral axillary lymph nodes. No other significant abnormalities are identified. There has been no significant change since the prior study. BI/SCRN MAMM (CAD)W/SRIDHAR BILAT IMPRESSION: Stable bilateral screening mammogram. Yearly follow-up mammogram recommended. (A) ASSESSMENT CATEGORY: BIRADS Category 2: Benign. A letter regarding these results will be sent to the patient by the facility within 30 days. Approximately 10% of breast cancers are not detected by mammography. A normal mammogram should not delay biopsy of a clinically suspicious abnormality. [id number] Electronically Signed: Vick Moya MD at 8:48 EST ,
== END | disposition home or self-care (01) ==
LOC: OPBI 07:39
PROVIDERS: PCP Family Medicine; Referring Provider Obstetrics & Gynecology; Visit Provider Obstetrics & Gynecology
DX: Z12.31 Encounter for screening mammogram for malignant neoplasm of breast (principal)
CPT/HCPCS: 77063; 77067

== ENCOUNTER → 2022-07-06 | Outpatient (CLI) | payer OTHER, SELFPAY ==
[2022-07-06 18:41] LABS: Anion Gap 4 (5-15); BUN 18 mg/dL (7-18); BUN/Creat Ratio 21.2 RATIO (10-20); Calcium,Total 8.9 mg/dL (8.5-10.1); Chloride 110 mmol/L (98-107); Cholesterol 178 mg/dL (200); Creatinine, Serum 0.85 mg/dL (0.55-1.02); EST Glomerular Filtration Rate 72 mL/min (>60); Est Glom Filt Rate - Afr Amer 87 mL/min (>60); Glucose 94 mg/dL (74-106); High Density Lipoprotein 46 mg/dL; Sodium Level 141 mmol/L (136-145); T4 Total, Thyroxin 9.2 ug/dL (4.8-13.9); Thyroid Stim Hormone (TSH) 1.16 uIU/mL (0.358-3.74); Triglycerides 174 mg/dL; Very Low Density Lipoprotein 35 mg/dL (5-40)
== END | disposition home or self-care (01) ==
LOC: MFPLAB 16:08
PROVIDERS: PCP Family Medicine; Visit Provider Family Medicine
DX: I10 Essential (primary) hypertension (principal); E03.9 Hypothyroidism, unspecified
CPT/HCPCS: 36415; 80048; 80061; 84436; 84443

== ENCOUNTER → 2023-04-30 | Outpatient (CLI) | payer OTHER, SELFPAY ==
--- NOTE | 2023-04-30 12:47 | BI_ITS ---
MAMMOGRAPHY - BILATERAL DIAGNOSTIC REASON FOR EXAM: Female, 62 years old. right breast pain PERTINENT HISTORY: No family history TECHNIQUE: Digital examination. Mediolateral oblique (MLO) and craniocaudad (CC) views of both breasts were obtained. CAD: CAD was performed on this study. COMPARISON: 05/21/2021 FINDINGS: Breast Composition: There are scattered areas of fibroglandular density. There are no dominant masses or suspicious calcifications. No other significant abnormalities are identified. There has been no significant change since the prior study. BI/DIAG MAMM W/CAD, BILAT IMPRESSION: Negative diagnostic mammogram. Yearly followup recommended. ASSESSMENT CATEGORY: BIRADS Category 2: Benign. A letter regarding these results will be sent to the patient by the facility within 30 days. FOLLOW UP RECOMMENDATION: Yearly follow up mammogram recommended. (A) Approximately 10% of breast cancers are not detected by mammography. A normal mammogram should not delay biopsy of a clinically suspicious abnormality. Electronically Signed: Lewis Colby MD at 13:39 EST ,
== END | disposition home or self-care (01) ==
LOC: OPUS 12:47
PROVIDERS: PCP Family Medicine; Referring Provider Nurse Practitioner Women's Health; Visit Provider Nurse Practitioner Women's Health
DX: N64.4 Mastodynia (principal)
CPT/HCPCS: 77062; 77066; G0279

== ENCOUNTER → 2023-09-11 | Outpatient (CLI) | payer OTHER, SELFPAY ==
[2023-09-11 11:06] LABS: Protein, Urine (Random) 22.6 mg/dL (<11.9); Protein:Creat Ratio 100 mg/g CRE (0-200)
[2023-09-11 11:21] LABS: Anion Gap 5 (5-15); BUN 21 mg/dL (7-18); BUN/Creat Ratio 19.3 RATIO (10-20); Chloride 107 mmol/L (98-107); Cholesterol 187 mg/dL (200); Creatinine, Serum 1.09 mg/dL (0.55-1.02); EST Glomerular Filtration Rate 54 mL/min (>60); Est Glom Filt Rate - Afr Amer 65 mL/min (>60); Glucose 107 mg/dL (74-106); High Density Lipoprotein 53 mg/dL; Potassium 3.6 mmol/L (3.5-5.1); Sodium Level 139 mmol/L (136-145); Triglycerides 70 mg/dL; Very Low Density Lipoprotein 14 mg/dL (5-40)
== END | disposition home or self-care (01) ==
LOC: LAB 10:21
PROVIDERS: PCP Family Medicine; Referring Provider Family Medicine; Visit Provider Family Medicine
DX: E03.9 Hypothyroidism, unspecified (principal); I10 Essential (primary) hypertension
CPT/HCPCS: 36415; 80048; 80061; 82570; 84156; 84436; 84443

== ENCOUNTER → 2024-01-10 | Outpatient (CLI) | payer OTHER, SELFPAY ==
--- NOTE | 2024-01-10 14:20 | RAD_ITS ---
STUDY: X-RAY - LEFT FOOT CLINICAL: Female, 63 years old. Pain and swelling. TECHNIQUE: 3 view(s) of the foot. COMPARISON: None. FINDINGS: Osteopenia. Inferior calcaneal spur. Normal visualized subtalar, talonavicular, calcaneocuboid, tarsal and tarsometatarsal articulations. Moderate arthrosis of the MTP and IP joints most marked at the first MTP joint. Diffuse mild soft tissue swelling. RAD/Foot min 3 Views IMPRESSION: Osteopenia with calcaneal spur and osteoarthritic changes. No acute abnormality or erosive changes. Electronically Signed: Patricio Patricia MD at 14:52 EDT ,
[2024-01-10 17:48] LABS: Absolute Lymphocyte Count 2.55 X10^3/uL (0.83-4.51); Absolute Neutrophil Count 6.3 X10^3/uL (2.0-7.7); Basophil# 0.06 X10^3/uL; Basophil% 0.6 % (0-1); Eosinophil# 0.06 X10^3/uL; Eosinophils% 0.6 % (0-5); Hematocrit 41.7 % (37-47); Hemoglobin 14.1 g/dL (12.0-15.0); Lymphocyte # 2.55 X10^3/ul (0.83-4.51); Lymphocyte % 26.6 % (19-41); Mean Corp Hgb Conc 33.8 g/dL (32-36); Mean Corpuscular Hgb 31.3 pg (27.0-32.0); Mean Corpuscular Volume 92.5 fL (81-99); Mean Platelet Vol. 9.7 fl (6.2-12.0); Monocyte# 0.62 X10^3/uL; Monocyte% 6.5 % (0-10); NRBC Flagged by Analyzer 0 % (0-5); Neutrophil # 6.27 X10^3/uL (2.7-7.7); Neutrophil % 65.3 % (47-70); Platelet Count 305 K/mm3 (150-450); RBC Distribution Width CV 12.5 % (11.6-14.6); RBC Distribution Width SD 41.5 fl (35.1-43.9); Red Blood Count 4.51 M/mm3 (4.2-5.4); White Blood Count 9.6 K/mm3 (4.4-11.0)
[2024-01-10 17:53] LABS: CRP 5.14 mg/L (0.0-3.0); Rheumatoid Factor < 10.0 IU/mL (<15); Uric Acid 9.1 mg/dL (2.6-6.0)
[2024-01-10 18:33] LABS: Erythrocyte Sedimentation Rate 8 mm/hr (0-30)
[2024-01-12 13:08] LABS: ANTINUCLEAR ANTIBODIES DIRECT Negative (Negative)
== END | disposition home or self-care (01) ==
LOC: MTLAB 14:18
PROVIDERS: PCP Family Medicine; Referring Provider Family Medicine; Visit Provider Family Medicine
DX: M79.673 Pain in unspecified foot (principal)
CPT/HCPCS: 36415; 73630; 84550; 85025; 85652; 86038; 86140; 86431

== ENCOUNTER → 2024-02-11 | Outpatient (CLI) | payer OTHER, SELFPAY ==
[2024-02-18 16:10] LABS: HPV APTIMA, High Risk Negative (Negative)
== END | disposition home or self-care (01) ==
LOC: LABSPEC 09:43
PROVIDERS: PCP Family Medicine; Referring Provider Obstetrics & Gynecology; Visit Provider Obstetrics & Gynecology
DX: Z12.4 Encounter for screening for malignant neoplasm of cervix (principal)
CPT/HCPCS: 87624; 88175; G0145

== ENCOUNTER → 2024-05-18 | Outpatient (CLI) | payer OTHER, SELFPAY ==
--- NOTE | 2024-05-18 08:01 | BI_ITS ---
PROCEDURE: SCRN MAMM (CAD)W/SRIDHAR BILAT REASON FOR EXAM: F, Age 63 y/o, presents for annual screening mammogram. TECHNIQUE: Bilateral screening digital breast tomosynthesis with 2D and 3D images. Computer aided detection. COMPARISON: 04/30/2023 FINDINGS: There are scattered areas of fibroglandular density. No suspicious masses, areas of developing architectural distortion, or suspicious calcifications. BI/SCRN MAMM (CAD)W/SRIDHAR BILAT IMPRESSION: There is no mammographic evidence of malignancy in either breast. BI-RADS 1: NEGATIVE. RECOMMEND ANNUAL MAMMOGRAPHIC SCREENING. Follow-up code: Routine Follow-up The patient will be notified of the results by letter. Reading Location: [id number]
--- NOTE | 2024-05-18 08:01 | BD_ITS ---
PROCEDURE: DEXA BONE DENSITY STUDY REASON FOR EXAM: 63-year-old female. Osteoporosis screening TECHNIQUE: DEXA scan of the lumbar spine and both hips. COMPARISON: None. FINDINGS: T-SCORES Lumbar spine: T-score 0.7. (Bone mineral density of 1.122 g per cm2.) Left hip: T-score -0.9. (Bone mineral density 0.749 g per cm2) Right hip: T-score -0.4. (Bone mineral density 0.805 g per cm2.) FRAX* Results: 10 Year Probability of Fracture: Hip Fracture(1): 0.3% Major Osteoporotic Fracture(2): 12% *FRAX is a trademark of the [employer]'s [employer], World Health Organization (WHO) Collaborating [place]. 1-The 10-year probability of fracture may be lower than reported if the patient has received treatment. 2-Major Osteoporotic Fracture: Clinical Spine, Forearm, Hip or Shoulder. The T-scores are also available for review on the [facility] PACS or by accessing the [facility] electronic medical record. BD/Dexa Bone Density Study IMPRESSION: Normal bone mineral density. Reading Location: [id number]
== END | disposition home or self-care (01) ==
LOC: OPBD 08:00
PROVIDERS: PCP Family Medicine; Referring Provider Obstetrics & Gynecology; Visit Provider Obstetrics & Gynecology
DX: Z12.31 Encounter for screening mammogram for malignant neoplasm of breast (principal); Z13.820 Encounter for screening for osteoporosis
CPT/HCPCS: 77063; 77067; 77080

== ENCOUNTER → 2024-07-03 | Outpatient (CLI) | payer OTHER, SELFPAY ==
[2024-07-03 18:53] LABS: Internal QC Validated? YES +Cl - CLEAR BKGD; Monotest Negative (Negative); Record Kit Lot#, Mono 13241430
== END | disposition home or self-care (01) ==
LOC: MTLAB 15:20
PROVIDERS: PCP Family Medicine
DX: R05.9 Cough, unspecified (principal)
CPT/HCPCS: 36415; 86308

== ENCOUNTER → 2024-11-17 | Outpatient (CLI) | payer OTHER, SELFPAY ==
[2024-11-17 18:13] LABS: Creatinine, Urine (random) 92.10 mg/dL (28.00-217.00); Microalbumin,Random Urine < 12.0 mg/L (<20 mg/L)
[2024-11-17 18:24] LABS: AST(SGOT) 25 U/L (<=31); Alanine Aminotransfer ALT/SGPT 36 U/L (<=34); Albumin, Serum 4.3 g/dL (3.4-4.8); Alkaline Phosphatase 86 U/L (35-104); Anion Gap 12 (5-15); BUN 22 mg/dL (4-19); BUN/Creat Ratio 21.3 RATIO (10-20); Calcium,Total 10.3 mg/dL (7.6-11.0); Carbon Dioxide 27.1 mmol/L (21.0-32.0); Chloride 102 mmol/L (98-108); Globulin 3.5 g/dL (2.2-4.2); Glucose 78 mg/dL (70-99); Potassium 4.3 mmol/L (3.3-5.1); Uric Acid 9.9 mg/dL (2.6-6.0)
== END | disposition home or self-care (01) ==
LOC: MTLAB 14:28
PROVIDERS: PCP Family Medicine; Referring Provider Family Medicine; Visit Provider Family Medicine
DX: E03.9 Hypothyroidism, unspecified (principal); I10 Essential (primary) hypertension; M10.9 Gout, unspecified
CPT/HCPCS: 36415; 80053; 82043; 82570; 84443; 84550

== ENCOUNTER → 2025-03-24 | Outpatient (CLI) | payer OTHER, SELFPAY ==
--- OUTSIDE RECORDS SUMMARY | 2025-03-24 11:07 | XMS RPT_ITS | CCD ---
Author Organization [facility] Care Team Providers Care Hard Tile Setter Apprentice Name Role Phone Dr. Varsha Harrell Primary Care Provider Dr. Varsha Harrell Referring Provider Dr. Melissa Liz Attending Provider Mikayla MILNER, PA Leon Acevedo Attending Provider Max MILNER PA Abhijit Attending Provider [phone] Dr. Varsha Harrell MD Primary Care Provider Dr. Melissa Liz MD Attending Provider Dr. Melissa Liz MD Referring Provider McMorrow MANAGER MERCHANDISING-CSincere Attending Provider [phone] Sophieorrow MANAGER MERCHANDISING-CSincere Referring Provider [phone] Dagoberto Srivastava MD Primary Care Provider [phone] Dagoberto Srivastava MD Attending Provider [phone] Dr. Dagoberto Srivastaav MD Referring Provider [phone] Mavislliff, Varsha S Primary Care Unavailable Melissa Liz Attending Unavailable Melissa Liz Referring Unavailable Jolliff, Varsha S Primary Care Unavailable McMorrow MANAGER MERCHANDISINGSincere Attending Unavailable McMorrow MANAGER MERCHANDISINGSincere Referring Unavailable Jolliff, Varsha S Referring Unavailable Jolliff, Varsha S Primary Care Unavailable Jolliff, Varsha S Attending Unavailable Dagoberto Srivastava Primary Care Unavailable Dagoberto Srivastava Attending Unavailable Dagoberto Srivastava Referring Unavailable Jolliff, Varsha S Referring Unavailable Melissa Liz Attending Unavailable Jolliff, Varsha S Primary Care Unavailable Jolliff, Varsha S Referring Unavailable Jolliff, Varsha S Primary Care Unavailable Jolliff, Varsha S Attending Unavailable Jolliff, Varsha S Primary Care Unavailable Melissa Liz Attending Unavailable Melissa Liz Referring Unavailable Allergies Allergy Classification Reported Allergen(s) Allergy Type Date of Onset Reaction(s) Facility (6 sources) Adhesive Tape; Translations: [adhesive tape] Propensity to adverse reactions 2 Unknown [facility] (5 sources) Sulfonamides (Antibiotic) Propensity to adverse reactions 2 Unknown [facility] (1 source) Sulfonamides (Antibiotic) Drug allergy (disorder) 4 [facility] Repository Medications Current Medications Medication Drug Class(es) Dates Sig (Normalized) Sig (Original) allopurinol 100 mg oral tablet (3 sources) Xanthine Oxidase Inhibitor Start: 02-11-2024 End: 09-21-2024 Allopurinol 100 mg tablet Active 100 mg PO .COMPLEX September 21, 2024 11:30am 100 mg orally QDAY:patient now obtains ALL medications from her PRIMARY PHYSICIAN; atenolol 50 mg oral tablet (20 sources) beta-Adrenergic Erasto Start: 07-31-2020 End: 09-21-2024 take 1 tablet by mouth once daily Atenolol 50 mg tablet Active 50 mg PO .COMPLEX 90 4 September 21, 2024 11:26am 50 mg orally daily: patient now obtains ALL meds from her Primary Physician; Start: 06-17-2020 End: 07-31-2020 take 1 tablet by mouth once daily Atenolol 100 mg tablet Discontinued 100 mg PO daily 90 3 July 26, 2020 4:02pm July 31, 2020 11:28am Start: 06-17-2020 End: 06-17-2020 take 2 tablets by mouth once daily Atenolol 50 mg tablet Discontinued 100 mg PO daily June 17, 2020 9:42am June 17, 2020 10:04am Start: 06-17-2020 End: 06-17-2020 take 100 mg by mouth once daily Atenolol Discontinued 100 MG PO daily June 17, 2020 9:42am June 17, 2020 10:04am Start: 04-30-2017 End: 06-17-2020 take 1 tablet by mouth once daily Atenolol 50 mg tablet Discontinued 50 mg PO daily 90 3 September 26, 2019 2:30pm June 17, 2020 9:43am fexofenadine hydrochloride 180 mg oral tablet (6 sources) Histamine-1 Receptor Antagonist Start: 04-30-2017 End: 09-21-2024 take 1 tablet by mouth once daily as needed Fexofenadine (Stefania Allergy) 180 mg tablet Active 180 mg PO .COMPLEX 90 0 September 21, 2024 11:29am allergy symptoms 180 mg orally q day PRN:;patient now obtains ALL medications from her PRIMARY PHYSICIAN; fluticasone propionate 0.05 mg/actuat metered dose nasal spray (8 sources) Corticosteroid Start: 09-01-2023 End: 09-21-2024 take 50 ug nasal route once daily Fluticasone Propionate (Flonase Allergy Relief) 50 mcg/actuation spray,suspension Active 1 NMA INTRANASAL DAILY as needed September 21, 2024 11:28am administer into each nostril patient now obtains ALL medications from her PRIMARY PHYSICIAN; Start: 05-24-2017 End: 12-04-2021 Fluticasone Propionate (Flon ase Allergy Relief) 50 mcg/actuation spray,suspension Discontinued 1 NMA INTRANASAL daily as needed May 24, 2017 1:00am December 04, 2021 3:14pm Start: 05-24-2017 End: 12-04-2021 Fluticasone Propionate (Flon ase Allergy Relief) 50 mcg/actuation spray,suspension Discontinued 1 SPRAY INTRANASAL daily May 24, 2017 1:00am December 04, 2021 3:14pm hydroCHLOROthiazide 25 mg / valsartan 320 mg oral tablet (3 sources) Thiazide Diuretic, Angiotensin 2 Receptor Erasto Start: 09-01-2023 End: 09-21-2024 take 1 tablet by mouth once daily Valsartan-Hydrochlorothiazide 320-25 mg tablet Active 1 {tbl} PO .COMPLEX September 21, 2024 11:27am 1 TAB orally DAILY: patient now obtains ALL medications from her PRIMARY PHYSICIAN; levothyroxine sodium 0.05 mg oral tablet (6 sources) l-Thyroxine Start: 06-16-2019 End: 09-21-2024 take 1 tablet by mouth once daily Levothyroxine 50 mcg tablet Active 50 ug PO .COMPLEX September 21, 2024 11:28am 50 mcg orally daily; patient now obtains ALL medications from her PRIMARY PHYSICIAN; Completed/Discontinued Medications Medication Drug Class(es) Dates Sig (Normalized) Sig (Original) DULoxetine 60 mg delayed release oral capsule (5 sources) Serotonin and Norepinephrine Reuptake Inhibitor Start: 04-30-2017 End: 12-04-2021 take 1 capsule by mouth once daily Duloxetine 60 mg capsule,delayed release(DR/EC) Discontinued 60 mg PO daily 90 0 April 30, 2017 1:00am December 04, 2021 3:13pm etodolac 500 mg oral tablet (2 sources) Nonsteroidal Anti-inflammatory Drug Start: 09-01-2023 End: 02-11-2024 take 1 tablet by mouth twice daily Etodolac 500 mg tablet Discontinued 500 mg PO TWICE A DAY 60 0 September 01, 2023 12:00am February 11, 2024 8:19am Do not take in conjunction with other NSAID. Tylenol is okay. gabapentin 100 mg oral capsule (10 sources) Anti-epileptic Agent Start: 03-20-2020 End: 06-17-2020 Gabapentin 100 mg capsule Discontinued 100 mg PO as needed March 20, 2020 12:42pm June 17, 2020 9:43am Start: 02-21-2020 End: 03-20-2020 Gabapentin 100 mg capsule Di scontinued NMA PO February 21, 2020 1:00am March 20, 2020 12:42pm Start: 02-21-2020 End: 03-20-2020 Gabapentin Discontinued CAP PO February 21, 2020 1:00am March 20, 2020 12:42pm hydroCHLOROthiazide 25 mg / losartan potassium 100 mg oral tablet (2 sources) Thiazide Diuretic, Angiotensin 2 Receptor Erasto Start: 04-22-2023 End: 09-01-2023 Losartan-Hydrochlorothiazide (Hyzaar) 100-25 mg tablet Discontinued 1 {tbl} PO DAILY April 22, 2023 1:00am September 01, 2023 8:24am losartan potassium 100 mg oral tablet (20 sources) Angiotensin 2 Receptor Erasto Start: 04-30-2017 End: 04-22-2023 take 1 tablet by mouth once daily Losartan (Cozaar) 100 mg tablet Discontinued 100 mg PO daily 90 4 July 14, 2022 9:53am April 22, 2023 3:51pm meloxicam 15 mg oral tablet (10 sources) Nonsteroidal Anti-inflammat ory Drug Start: 09-30-2020 End: 11-27-2020 take 1 tablet by mouth once daily Meloxicam 15 mg tablet Discontinued 15 mg PO DAILY 30 0 September 30, 2020 12:00am November 27, 2020 1:04pm Osteoarthritis of left knee Osteoarthritis of right knee Tear of meniscus of left knee Body mass index (BMI) greater than 35 Unilateral primary osteoarthritis, left knee Unilateral primary osteoarthritis, right knee OA bilateral knees Do not take in conjunction with other NSAIDs, Tylenol is okay. Start: 06-13-2018 End: 06-16-2019 take 1 tablet by mouth once daily as needed Meloxicam 15 mg tablet Discontinued 15 mg PO DAILY as needed June 13, 2018 1:00am June 16, 2019 9:32am rOPINIRole 0.25 mg oral tablet (15 sources) Nonergot Dopamine Agonist Start: 11-27-2020 End: 12-04-2021 take 4 tablets by mouth at bedtime Ropinirole 0.25 mg tablet Discontinued 1 mg PO AT BEDTIME as needed July 07, 2021 4:01pm December 04, 2021 3:14pm administer 1-3 hours before bedtime Start: 11-27-2020 End: 12-04-2021 take 1 mg by mouth at bedtime Ropinirole Discontinued 1 MG PO AT BEDTIME July 07, 2021 4:01pm December 04, 2021 3:14pm administer 1-3 hours before bedtime Start: 06-16-2019 End: 11-27-2020 take 2 tablets by mouth at bedtime Ropinirole 0.25 mg tablet Discontinued 0.5 mg PO AT BEDTIME June 16, 2019 1:00am November 27, 2020 1:04pm administer 1-3 hours before bedtime Start: 06-16-2019 End: 11-27-2020 take 0.5 mg by mouth at bedtime Ropinirole Discontinue d 0.5 MG PO AT BEDTIME June 16, 2019 1:00am November 27, 2020 1:04pm administer 1-3 hours before bedtime Problems Active Problems Problem Classification Problem Date Documented Date Episodic/Chronic Cardiac dysrhythmias (10 sources) Palpitations; Translations: [Palpitations] 06-17-2020 Episodic Disorders of lipid metabolism (10 sources) Hyperlipidemia; Translations: [Hyperlipidemia, unspecified] 06-17-2020 Chronic Essential hypertension (15 sources) Essential hypertension; Translations: [Essential (primary) hypertension] 05-26-2018 Chronic Heart valve disorders (5 sources) Heart murmur; Translations: [Cardiac murmur, unspecified] 05-20-2017 Episodic Nonmalignant breast conditions (2 sources) Mastodynia; Translations: [Pain of right breast] 04-22-2023 Episodic Comment on above: imaging Nonspecific chest pain (10 sources) Chest pain; Translations: [Chest pain, unspecified] 05-20-2017 Episodic Open wounds of extremities (7 sources) Laceration of hand; Translations: [Laceration without foreign body of right hand, initial encounter] Episodic Osteoarthritis (11 sources) Osteoarthritis of left knee joint; Translations: [Unilateral primary osteoarthritis, left knee] Onset: 5 09-30-2020 Chronic Other aftercare (3 sources) Patient encounter status; Translations: [Other termite control technician (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) drug therapy] 05-20-2017 Episodic Other aftercare (2 sources) Long-term current use of drug therapy; Translations: [Other termite control technician (current) drug therapy] 05-20-2017 Episodic Comment on above: Antihyperlipidemic Other lower respiratory disease (5 sources) Snoring; Translations: [Snoring] 05-20-2017 Episodic Other nutritional; endocrine; and metabolic disorders (5 sources) Obesity; Translations: [Obesity, unspecified] 09-30-2020 Chronic Thyroid disorders (6 sources) Hypothyroidism; Translations: [Hypothyroidism, unspecified] Onset: 5 06-16-2019 Chronic Unclassified (1 source) Cough, unspecified; Translations: [Cough, unspecified] Onset: 5 Past or Other Problems Problem Classification Problem Date Documented Da te Episodic/Chronic Other connective tissue disease (1 source) Pain in unspecified foot; Translations: [Pain in unspecified foot] Onset: 02-01-2024 Episodic Other screening for suspected conditions (not mental disorders or infectious disease) (2 sources) Encounter for screening mammogram for malignant neoplasm of breast; Translations: [Encounter for screening for malignant neoplasm of cervix] Onset: 03-02-2024 Episodic Results Test Name Value Interpretation Reference Range Facility Anion gap in Serum or Plasma Ordered By: Dagoberto Srivastava on 11-17-2024 Anion gap [Moles/Vol] 12 mmol/L 5-15 [facility] BUN/creatinine ratioOrdered By: Dagoberto Srivastava on 11-17-2024 Urea nitrogen/Creatinine [Mass ratio] 21.3 mg/mg High 10-20 [facility] Bilirubin, totalOrdered By: Dagoberto Srivastava on 11-17-2024 Bilirubin [Mass/Vol] 0.48 mg/dL 0.00-1.30 [facility] Carbon dioxide, total [Moles /volume] in Central venous bloodOrdered By: Dagoberto Srivastava on 11-17-2024 CO2 [Moles/Vol] 27.1 mmol/L 21.0-32.0 [facility] Chloride assayOrdered By: Suraj Srivastava on 11-17-2024 Chloride [Moles/Vol] 102 mmol/L 98-108 [facility] Comprehensive Metabolic Prof ilon 11-17-2024 Albumin [Mass/Vol] 4.3 g/dL Normal 3.4-4.8 [facility] Comment on above: Performed By: #### L 502.0250, L500.4050, L501.1400, L501.9520 #### [facility] [address] [place], [address] Albumin/Globulin [Mass ratio] 1.2 {ratio} Normal 0.9-2.4 [facility] Comment on above: Performed By: #### L 502.0250, L500.4050, L501.1400, L501.9520 #### [facility] [address] [place], [address] ALK PHOS 86 U/L Normal 35-104 [facility] Comment on above: Performed By: #### L 502.0250, L500.4050, L501.1400, [id number] #### [facility] [address] [place], [address] ALT [Catalytic activity/Vol] 36 U/L High <=34 [facility] Comment on above: Performed By: #### L 502.0250, L500.4050, L501.1400, [id number] #### [facility] [address] [place], [address] AST [Catalytic activity/Vol] 25 U/L Normal <=31 [facility] Comment on above: Performed By: #### L 502.0250, L500.4050, L501.1400, L501.9520 #### [facility] [address] [place], [address] Bilirubin [Mass/Vol] 0.48 mg/dL Normal 0.00-1.30 [facility] Comment on above: Performed By: #### L 502.0250, L500.4050, L501.1400, L501.9520 #### [facility] [address] [place], [address] BUN/CRE 21.3 RATIO High 10-20 [facility] Comment on above: Performed By: #### L 502.0250, L500.4050, L501.1400, L501.9520 #### [facility] [address] [place], [address] Calcium [Mass/Vol] 10.3 mg/dL Normal 7.6-11.0 [facility] Comment on above: Performed By: #### L 502.0250, L500.4050, L501.1400, L501.9520 #### [facility] [address] [place], [address] Chloride [Moles/Vol] 102 mmol/L Normal 98-108 [facility] Comment on above: Performed By: #### L 502.0250, L500.4050, L501.1400, L501.9520 #### [facility] [address] [place], [address] CO2 [Moles/Vol] 27.1 mmol/L Normal 21.0-32.0 [facility] Comment on above: Performed By: #### L 502.0250, L500.4050, L501.1400, L501.9520 #### [facility] [address] [place], [address] Creatinine [Mass/Vol] 1.05 mg/dL Normal 0.70-1.20 [facility] Comment on above: Performed By: #### L 502.0250, L500.4050, L501.1400, L501.9520 #### [facility] [address] [place], [address] GAP 12 Normal 5-15 [facility] Comment on above: Performed By: #### L 502.0250, L500.4050, L501.1400, L501.9520 #### [facility] [address] [place], [address] GFR/1.73 sq M.predicted among non-blacks MDRD (S/P/Bld) [Vol rate/Area] 60 mL/min/{1.73_m2} Normal >60 [facility] Comment on above: Result Comment: mL/m in/1.73m2 CKD-EPI Creatinine Equation (2020) Performed By: #### L 502.0250, L500.4050, L501.1400, L501.9520 #### [facility] [address] [place], [address] Globulin (S) [Mass/Vol] 3.5 g/dL Normal 2.2-4.2 [facility] Comment on above: Performed By: #### L 502.0250, L500.4050, L501.1400, L501.9520 #### [facility] [address] [place], [address] Glucose [Mass/Vol] 78 mg/dL Normal 70-99 [facility] Comment on above: Performed By: #### L 502.0250, L500.4050, L501.1400, L501.9520 #### [facility] [address] [place], [address] Potassium [Moles/Vol] 4.3 mmol/L Normal 3.3-5.1 [facility] Comment on above: Performed By: #### L 502.0250, L500.4050, L501.1400, L501.9520 #### [facility] [address] [place], [address] Sodium [Moles/Vol] 141 mmol/L Normal 133-145 [facility] Comment on above: Performed By: #### L 502.0250, L500.4050, L501.1400, L501.9520 #### [facility] [address] [place], [address] T PROT 7.8 g/dL Normal 5.9-8.4 [facility] Comment on above: Performed By: #### L 502.0250, L500.4050, L501.1400, L501.9520 #### [facility] [address] [place], [address] Urea nitrogen [Mass/Vol] 22 mg/dL High 4-19 [facility] Comment on above: Performed By: #### L 502.0250, L500.4050, L501.1400, L501.9520 #### [facility] [address] [place], [address] Glomerular filtration rate ( GFR) estimation/1.73 sq m using serum, plasma, or whole bOrdered By: Dagoberto Srivastava on 11-17-2024 GFR/1.73 sq M.predicted among non-blacks MDRD (S/P/Bld) [Vol rate/Area] 60 mL/min/{1.73_m2} >60 [facility] Comment on above: mL/min/1.73m2 CKD-EP I Creatinine Equation (2020) Laboratory - Chemistry and C hemistry - challengeOrdered By: Dagoberto Srivastava on 11-17-2024 AST [Catalytic activity/Vol] 25 U/L <32 [facility] Microalb:Creat Ratio,Random URon 11-17-2024 Creatinine [Mass/Vol] 92.10 mg/dL Normal 28.00-217.00 [facility] Comment on above: Performed By: #### L 502.0250, L500.4050, L501.1400, L501.9520 #### [facility] [address] [place], [address] MALB:CREAT UNABLE TO CALCULATE Normal <30 mg/g CRE [facility] Comment on above: Performed By: #### L 502.0250, L500.4050, L501.1400, L501.9520 #### [facility] [address] [place], [address] MICROALBUMIN,UR < 12.0 Normal <20 mg/L [facility] Comment on above: Performed By: #### L 502.0250, L500.4050, L501.1400, L501.9520 #### [facility] [address] [place], [address] Microalbumin/creat ratio urO rdered By: Dagoberto Srivastava on 11-17-2024 Urine microalbumin/creatinin e ratio measurement UNABLE TO CALCULATE mg/g CRE <30 [facility] Potassium measurement (mass/ volume)Ordered By: Dagoberto Srivastava on 11-17-2024 Potassium (Unsp spec) [Mass/Vol] 4.3 mmol/L 3.3-5.1 [facility] Random urine creatinine chino urement (mass/volume)Ordered By: Dagoberto Srivastava on 11-17-2024 Creatinine Unsp time (U) [Mass/Vol] 92.10 mg/dL 28.00-217.00 [facility] Serum creatinine measurement (mass/volume)Ordered By: Dagoberto Srivastava on 11-17-2024 Creatinine [Mass/Vol] 1.05 mg/dL 0.70-1.20 [facility] Serum globulin measurementOr dered By: Dagoberto Srivastava on 11-17-2024 Globulin (S) [Mass/Vol] 3.5 g/dL 2.2-4.2 [facility] Serum glucose measurement (m ass/volume)Ordered By: Dagoberto Srivastava on 11-17-2024 Glucose [Mass/Vol] 78 mg/dL 70-99 [facility] Serum or plasma alanine pimentel otransferase (ALT) measurementOrdered By: Dagoberto Srivastava on 11-17-2024 ALT [Catalytic activity/Vol] 36 U/L High <35 [facility] Serum or plasma albumin chino urement (mass/volume)Ordered By: Dagoberto Srivastava on 11-17-2024 Albumin [Mass/Vol] 4.3 g/dL 3.4-4.8 [facility] Serum or plasma albumin/glob ulin mass ratioOrdered By: Dagoberto Srivastava on 11-17-2024 Albumin/Globulin [Mass ratio] 1.2 {ratio} 0.9-2.4 [facility] Serum or plasma alkaline melvin sphatase measurementOrdered By: Dagoberto Srivastava on 11-17-2024 ALP [Catalytic activity/Vol] 86 U/L 35-104 [facility] Serum or plasma calcium chino urement (mass/volume)Ordered By: Dagoberto Srivastava on 11-17-2024 Calcium [Mass/Vol] 10.3 mg/dL 7.6-11.0 [facility] Serum or plasma urea nitroge n measurement (mass/volume)Ordered By: Dagoberto Srivastava on 11-17-2024 Urea nitrogen [Mass/Vol] 22 mg/dL High 4-19 [facility] Serum or plasma uric acid me asurement (mass/volume)Ordered By: Dagoberto Srivastava on 11-17-2024 Urate [Mass/Vol] 9.9 mg/dL High 2.6-6.0 [facility] Comment on above: The drugs N-Acetylcy steine and Metamizole may falsely depress this assay. Sodium levelOrdered By: Dagoberto Srivastava on 11-17-2024 Sodium [Moles/Vol] 141 mmol/L 133-145 [facility] TSH DL <= 0.005 mIU/L QnOrde red By: Dagoberto Srivastava on 11-17-2024 TSH Qn 1.400 uIU/mL 0.300-4.200 [facility] Thyroid Stim Hormone (TSH)on 11-17-2024 TSH 1.400 uIU/mL Normal 0.300-4.200 [facility] Comment on above: Performed By: #### L 502.0250, L500.4050, L501.1400, L501.9520 #### [facility] [address] [place], [address] Total proteinOrdered By: Alona Srivastava on 11-17-2024 Protein [Mass/Vol] 7.8 g/dL 5.9-8.4 [facility] Uric Acidon 11-17-2024 URIC 9.9 mg/dL High 2.6-6.0 [facility] Comment on above: Result Comment: The drugs N-Acetylcysteine and Metamizole may falsely depress this assay. Performed By: #### L 502.0250, L500.4050, L501.1400, L501.9520 #### [facility] [address] [place], [address] Urine albumin measurement [facility] detection limit of 20 mg/L or less (mass/volume)Ordered By: Dagoberto Srivastava on 11-17-2024 Albumin DL <= 20 mg/L (U) [Mass/Vol] < 12.0 mg/L <20 mg/L [facility] Heterophile Ab Ql (S)Ordered By: Sincere Hung on 07-03-2024 Monoscreen Negative Negative [facility] Monoteston 07-03-2024 Monocytes (Bld) [#/Vol] Negative Normal Negative [facility] Comment on above: Order Comment: Order Date: 07/03/24Order Info: [id number] - MONO Performed By: #### L 502.0250, L500.4050, L501.1400, L501.9520 #### [facility] [address] [place], [address] Dexa Bone Density Studyon Dexa Bone Density Study [facility] Imaging Services [address] [place] [address] Dexa Bone Density Study MR#: [id number] Acct: [id number] Name: TRISHA NARVAEZ Rep #: [id number] : 1960 F 63 From: Mich Meza i DO PCP: Dr. Varsha Harrlel MD Status: REG CLI Study: Dexa Bone Density Study Date of Exam: 05/18/24 Exam# [id number] Ordering Dr: Melissa Liz PROCEDURE: DEXA BONE DENSITY STUDY REASON FOR EXAM: 63-year-old female. Osteoporosis screening TECHNIQUE: DEXA scan of the lumbar spine and both hips. COMPARISON: None. FINDINGS: T-SCORES Lumbar spine: T-score 0.7. (Bone mineral density of 1.122 g per cm2.) Left hip: T-score -0.9. (Bone mineral density 0.749 g per cm2) Right hip: T-score -0.4. (Bone mineral density 0.805 g per cm2.) FRAX* Results: 10 Year Probability of Fracture: Hip Fracture(1): 0.3% Major Osteoporotic Fracture(2): 12% *FRAX is a trademark of the [employer]'s [employer] for Metabolic Bone Disease, World Health Organization (WHO) Collaborating [place]. 1-The 10-year probability of fracture may be lower than reported if the patient has received treatment. 2-Major Osteoporotic Fracture: Clinical Spine, Forearm, Hip or Shoulder. The T-scores are also available for review on the [facility] PACS or by accessing the [facility] electronic medical record. BD/Dexa Bone Density Study IMPRESSION: Normal bone mineral density. Reading Location: [facility] CC: Dr. Varsha Harrell MD; Dr. Melissa Liz MD Donor Relations Manager: Signed Normal [facility] SCRN MAMM (CAD)W/SRIDHAR BILATo n 05-18-2024 SCRN MAMM (CAD)W/SRIDHAR BILAT [facility] Imaging Services [address] [place] [id number] SCRN MAMM (CAD)W/SRIDHAR BILAT MR#: [id number] Acct: [id number] Name: TRISHA NARVAEZ Rep #: [id number] : 1960 F 63 From: Nayana Martines MD PCP: Dr. Varsha Harrell MD Status: REG CLI Study: SCRN MAMM (CAD)W/SRIDHAR BILAT Date of Exam: 10/04 Exam# [id number] Ordering Dr: Melissa Liz PROCEDURE: SCRN MAMM (CAD)W/SRIDHAR BILAT REASON FOR EXAM: F, Age 63 y/o, presents for annual screening mammogram. TECHNIQUE: Bilateral screening digital breast tomosynthesis with 2D and 3D images. Computer aided detection. COMPARISON: 04/30/2023 FINDINGS: There are scattered areas of fibroglandular density. No suspicious masses, areas of developing architectural distortion, or suspicious calcifications. BI/SCRN MAMM (CAD)W/SRIDHAR BILAT IMPRESSION: There is no mammographic evidence of malignancy in either breast. BI-RADS 1: NEGATIVE. RECOMMEND ANNUAL MAMMOGRAPHIC SCREENING. Follow-up code: Routine Follow-up The patient will be notified of the results by letter. Reading Location: [facility] CC: Dr. Varsha Harrell MD; Dr. Melissa Liz MD Donor Relations Manager: Signed Normal [facility] PAP IG HPV APTIMA 16/18,45on 02-18-2024 ADEQ Comment Normal . [facility] Comment on above: Order Comment: Speci men Comment: [id number] Comment: Source.............CervixSpecimen Comment: Other..............Post MenopausalSpecimen Comment: No. of containers..01 ThinPrep Vial Result Comment: Sati sfactory for evaluation. Endocervical and/or squamous metaplastic cells (endocervical component) are present. Performed By: #### L 502.0250, L500.4050, L501.1400, L501.9520 #### [facility] [address] [place], [address] COMM . Normal . [facility] Comment on above: Order Comment: Speci men Comment: [id number] Comment: Source.............CervixSpecimen Comment: Other..............Post MenopausalSpecimen Comment: No. of containers..01 ThinPrep Vial Performed By: #### L 502.0250, L500.4050, L501.1400, L501.9520 #### [facility] [address] [place], [place], [id number] COMMENT Comment Normal . [facility] Comment on above: Order Comment: Speci men Comment: [id number] Comment: Source.............CervixSpecimen Comment: Other..............Post MenopausalSpecimen Comment: No. of containers..01 ThinPrep Vial Result Comment: This liquid based ThinPrep(R) pap test was screened with the use of an image guided system. Performed By: #### L 502.0250, L500.4050, L501.1400, L501.9520 #### [facility] [address] [place], [place], [id number] DIAG Comment Normal . [facility] Comment on above: Order Comment: Speci men Comment: [id number] Comment: Source.............CervixSpecimen Comment: Other..............Post MenopausalSpecimen Comment: No. of containers..01 ThinPrep Vial Result Comment: NEGA TIVE FOR INTRAEPITHELIAL LESION OR MALIGNANCY. Performed By: #### L 502.0250, L500.4050, L501.1400, L501.9520 #### [facility] [address] [place], [place], [address] HPV APTIMA, HR Negative Normal Negative [facility] Comment on above: Order Comment: Speci men Comment: [id number] Comment: Source.............CervixSpecimen Comment: Other..............Post MenopausalSpecimen Comment: No. of containers..01 ThinPrep Vial Result Comment: This nucleic acid amplification test detects fourteen high- risk HPV types (16,18,31,33,35,39,45,51,52,56,58,59,66,68) without differentiation. Performed By: #### L 502.0250, L500.4050, L501.1400, L501.9520 #### [facility] [address] [place], [address] HPV Mena Rfx Comment Normal . [facility] Comment on above: Order Comment: Speci men Comment: [id number] Comment: Source.............CervixSpecimen Comment: Other..............Post MenopausalSpecimen Comment: No. of containers..01 ThinPrep Vial Result Comment: Crit eria not met, HPV Genotype not performed. Performed at: - [facility] [id number] [place] Operator: Julia Purvis MD, Phone: [phone] Performed at: = - [facility] [id number] [place] Operator: Julia Purvis MD, Phone: [phone] Performed By: #### L 502.0250, L500.4050, L501.1400, L501.9520 #### [facility] [address] [place], [address] PAPSMR Comment Normal . [facility] Comment on above: Order Comment: Speci men Comment: [id number] Comment: Source.............CervixSpecimen Comment: Other..............Post MenopausalSpecimen Comment: No. of containers..01 ThinPrep Vial Result Comment: The Pap smear is a screening test designed to aid in the detection of premalignant and malignant conditions of the uterine cervix. It is not a diagnostic procedure and should not be used as the sole means of detecting cervical cancer. Both false-positive and false-negative reports do occur. Performed By: #### L 502.0250, L500.4050, L501.1400, L501.9520 #### [facility] [address] [place], [address] PERFORM Comment Normal . [facility] Comment on above: Order Comment: Speci men Comment: [id number] Comment: Source.............CervixSpecimen Comment: Other..............Post MenopausalSpecimen Comment: No. of containers..01 ThinPrep Vial Result Comment: Laine Griffin, Density Control Puncher (ASCP) Performed By: #### L 502.0250, L500.4050, L501.1400, L501.9520 #### [facility] [address] [place], [place], [address] [facility] Visit Reporton 02-11-2024 [facility] Report [facility] [address], [address] [place] [address] OFFICE VISIT Date of Service: 02/11/24 MR#: [id number] Acct: [id number] Name: TRISHA NARVAEZ Rep #: [id number] : 1960 Provider: Dr. 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 Is patient in pain?: No Feel stressed/tense/nervous /anxious/difficulty sleeping: not at all Allergies adhesive tape Adverse Reaction (Unknown, Verified 02/11/24 08:19) Unknown Sulfa (Sulfonamide Antibiotics) Adverse Reaction (Unknown, Verified 02/11/24 08:19) Unknown Medications ???Medication ???Instructions ???Recorded ???Confirmed ???Type fexofenadine 180 mg tablet 180 mg PO QDAY PRN allergy 04/30/17 02/11/24 Rx (Stefania Allergy) symptoms #90 tabs levothyroxine 50 mcg tablet 50 mcg PO DAILY 06/16/19 02/11/24 History fluticasone propionate 50 1 spray intranasal DAILY PRN 09/01/23 02/11/24 History mcg/actuation nasal spray,suspension (Flonase Allergy Relief) valsartan 320 1 tab PO QDAY 09/01/23 02/11/24 History mg-hydrochlorothiazide 25 mg tablet atenolol 50 mg tablet 50 mg PO DAILY #90 tabs 09/08/23 02/11/24 Rx allopurinol 100 mg tablet 100 mg PO QDAY 02/11/24 02/11/24 History Is last menstrual period known: No Post menopausal: Yes Patient : No : No PFSH Medical History Laceration of right hand Restless leg syndrome Hypothyroidism Essential hypertension GWEN (obstructive sleep apnea) Hyperlipidemia Hypertension Palpitations Cardiac murmur Snoring Chest pain Hyperlipidemia Hypertension Palpitations Murmur Snoring Chest pain prison use of drug Surgical History H/O total adrenalectomy History of cholecystectomy H/O section History of tonsillectomy and adenoidectomy Family History Father Hypertension TIA (transient ischemic attack) Mother Hypertension Cancer Hyperlipidemia Brother CAD (coronary artery disease) Hx of CABG Myocardial infarction Social History Smoking Status: Never smoker alcohol intake: current alcohol intake frequency: a few times a month substance use type: does not use caffeine: Yes eating out: rarely or never what type of physical activity do you participate in: walking seatbelt use: always do you feel safe at home: Yes additional social history: [place]- single History 3 Elective abortions Hx Para 2 Spontaneous abortions Hx # Term Pregnancies Ectopic pregnancies Hx # Pregnancies Multiple births # of living children Past Pregnancies Del. Date Name GA/Weeks Outcome Route Bth Weight Infant Gen Labor Lgth Anesthesia Del Locatn Provider FOB Unknown 1991 Luana live - full term Unknown 1995 Leonor live - full term HPI Encounter for routine gynecological examination Details: TRISHA NARVAEZ is a 63 year old who presents for annual exam. Last PAP: 10/26/2019 - normal History of abnormal PAP: Last mammogram: 04/30/2023 - normal History of abnormal mammogram: Colon cancer screenin-8 years ago ((53) Other preventative health care screenings: Dr. Harrell - PCP does yearly labs Female Reproductive History Questions: metorrhagia: No, sexually active: Yes, dyspareunia: No and PCB: No Menopausal Symptoms: No hot flashes, No night sweats, No weight change, No mood changes, No difficulty concentrating, No sleep problems and No change in libido ROS Const Constitutional: Reports as per HPI; Denies fatigue, increased appetite, poor appetite, night sweats, weight gain or weight loss Cardio Card: Denies chest pain Resp Resp: Denies cough or dyspnea GI GI: Reports as per HPI; Denies abdominal pain, bloating, constipation, nausea or vomiting : Reports as per HPI and other; Denies difficulty voiding, dysuria, hematuria, hot flashes, nipple discharge, pelvic pain, prolapse symptoms, urinary frequency, urinary incontinence, urinary urgency, vaginal discharge, vaginal dryness, vaginal odor or vaginal pruritus Skin Skin/Breast: Denies changing lesions, breast mass, breast pain, breast skin changes or nipple discharge Psych Psych: Denies anxiety, change in libido, depression or difficulty concentrating Exam Const General: cooperative, healthy appearing, comfortable, no acute distress, well developed and w (more content not included)... Normal [facility] ANTINUCLEAR ANTIBODIES DIRE Ton 01-12-2024 ASHLY,DIRECT Negative Normal Negative [facility] Comment on above: Result Comment: Perf ormed at: CB - [facility] [address] [id number] [place] Operator: Jonatan Sandoval PhD, Phone: [phone] Performed By: #### L 3100.5475, L505.7010, L101.9900, L100.0100, L501.1400, L501.6710 #### [facility] [address] [place], [address] CBC W/Diff, Automatedon 09-3 0-4 Absolute Lymph 2.55 X10 3/uL Normal 0.83-4.51 [facility] Comment on above: Performed By: #### L 3100.5475, L505.7010, L101.9900, L100.0100, L501.1400, L501.6710 #### [facility] [address] [place], [address] Absolute Neut 6.3 X10 3/uL Normal 2.0-7.7 [facility] Comment on above: Performed By: #### L 3100.5475, L505.7010, L101.9900, L100.0100, L501.1400, L501.6710 #### [facility] [address] [place], [address] Basophils/100 WBC (Bld) 0.6 % Normal 0-1 [facility] Comment on above: Performed By: #### L 3100.5475, L505.7010, L101.9900, L100.0100, L501.1400, L501.6710 #### [facility] [address] [place], [address] Eosinophils/100 WBC (Bld) 0.6 % Normal 0-5 [facility] Comment on above: Performed By: #### L 3100.5475, L505.7010, L101.9900, L100.0100, L501.1400, L501.6710 #### [facility] [address] [place], [address] Erythrocyte distribution width (RBC) [Ratio] 12.5 % Normal 11.6-14.6 [facility] Comment on above: Performed By: #### L 3100.5475, L505.7010, L101.9900, L100.0100, L501.1400, L501.6710 #### [facility] [address] [place], [address] Hematocrit (Bld) [Volume fraction] 41.7 % Normal 37-47 [facility] Comment on above: Performed By: #### L 3100.5475, L505.7010, L101.9900, L100.0100, L501.1400, L501.6710 #### [facility] [address] [place], [address] Hemoglobin (Bld) [Mass/Vol] 14.1 g/dL Normal 12.0-15.0 [facility] Comment on above: Performed By: #### L 3100.5475, L505.7010, L101.9900, L100.0100, L501.1400, L501.6710 #### [facility] [address] [place], [address] IG% 0.400 Normal 0.0-0.9 [facility] Comment on above: Result Comment: IG% - Immature Granulocytes (promyelocytes, myelocytes and metamyelocytes) > 1% indicates that a LEFT SHIFT is Present. Performed By: #### L 3100.5475, L505.7010, L101.9900, L100.0100, L501.1400, L501.6710 #### [facility] [address] [place], [address] Lymphocytes/100 WBC (Bld) 26.6 % Normal 19-41 [facility] Comment on above: Performed By: #### L 3100.5475, L505.7010, L101.9900, L100.0100, L501.1400, L501.6710 #### [facility] [address] [place], [address] MCH (RBC) [Entitic mass] 31.3 pg Normal 27.0-32.0 [facility] Comment on above: Performed By: #### L 3100.5475, L505.7010, L101.9900, L100.0100, L501.1400, L501.6710 #### [facility] [address] [place], [address] MCHC (RBC) [Mass/Vol] 33.8 g/dL Normal 32-36 [facility] Comment on above: Performed By: #### L 3100.5475, L505.7010, L101.9900, L100.0100, L501.1400, L501.6710 #### [facility] [address] [place], [address] MCV (RBC) [Entitic vol] 92.5 fL Normal 81-99 [facility] Comment on above: Performed By: #### L 3100.5475, L505.7010, L101.9900, L100.0100, L501.1400, L501.6710 #### [facility] [address] [place], [address] Monocytes/100 WBC (Bld) 6.5 % Normal 0-10 [facility] Comment on above: Performed By: #### L 3100.5475, L505.7010, L101.9900, L100.0100, L501.1400, L501.6710 #### [facility] [address] [place], [address] Neutrophils/100 WBC (Bld) 65.3 % Normal 47-70 [facility] Comment on above: Performed By: #### L 3100.5475, L505.7010, L101.9900, L100.0100, L501.1400, L501.6710 #### [facility] [address] [place], [address] Nucleated RBC (Bld) [#/Vol] 0 10*3/uL Normal 0-5 [facility] Comment on above: Performed By: #### L 3100.5475, L505.7010, L101.9900, L100.0100, L501.1400, L501.6710 #### [facility] [address] [place], [address] Platelet mean volume (Bld) [Entitic vol] 9.7 fL Normal 6.2-12.0 [facility] Comment on above: Performed By: #### L 3100.5475, L505.7010, L101.9900, L100.0100, L501.1400, L501.6710 #### [facility] [place], [address] Platelets (Bld) [#/Vol] 305 10*3/uL Normal 150-450 [facility] Comment on above: Performed By: #### L 3100.5475, L505.7010, L101.9900, L100.0100, L501.1400, L501.6710 #### [facility] [address] [facility] [place], [address] RBC (Bld) [#/Vol] 4.51 10*6/uL Normal 4.2-5.4 [facility] Comment on above: Performed By: #### L 3100.5475, L505.7010, L101.9900, L100.0100, L501.1400, L501.6710 #### [facility] [address] [place], [address] RDW SD 41.5 fl Normal 35.1-43.9 [facility] Comment on above: Performed By: #### L 3100.5475, L505.7010, L101.9900, L100.0100, L501.1400, L501.6710 #### [facility] [address] [place], [address] WBC (Bld) [#/Vol] 9.6 10*3/uL Normal 4.4-11.0 [facility] Comment on above: Performed By: #### L 3100.5475, L505.7010, L101.9900, L100.0100, L501.1400, L501.6710 #### [facility] [address] [place] [place], [address] CRPon 01-10-2024 C-REACTIVE PROT 5.14 mg/L High 0.0-3.0 [facility] Comment on above: Result Comment: C-Re active Protein (CRP) provides useful information for the diagnosis, therapy and monitoring of inflammatory processes and associated diseases. For the evaluation of Relative Risk for Cardiovascular Disease, a High Sensitivity CRP (HSCRP) should be ordered. Performed By: #### L 3100.5475, L505.7010, L101.9900, L100.0100, L501.1400, L501.6710 #### [facility] [address] [place], [address] Erythrocyte Sed Rateon 01-09 SED RATE 8 mm/hr Normal 0-30 [facility] Comment on above: Performed By: #### L 3100.5475, L505.7010, L101.9900, L100.0100, L501.1400, L501.6710 #### [facility] [address] [place], [address] Foot min 3 Viewson 4 Foot min [address] [facility] Imaging Services [address] [facility] [place] [address] Foot min 3 Views MR#: [id number] Acct: [id number] Name: TRISHA NARVAEZ Rep #: [id number] : 1960 F 63 From: Patricio Patricia MD PCP: Dr. Varsha Harrell MD Status: REG CLI Study: Foot min 3 Views Date of Exam: 01/10/24 Exam# [id number] Ordering Dr: Varsha Harrell MD [id number] STUDY: X-RAY - LEFT FOOT CLINICAL: Female, 63 years old. Pain and swelling. TECHNIQUE: 3 view(s) of the foot. COMPARISON: None. FINDINGS: Osteopenia. Inferior calcaneal spur. Normal visualized subtalar, talonavicular, calcaneocuboid, tarsal and tarsometatarsal articulations. Moderate arthrosis of the MTP and IP joints most marked at the first MTP joint. Diffuse mild soft tissue swelling. RAD/Foot min 3 Views IMPRESSION: Osteopenia with calcaneal spur and osteoarthritic changes. No acute abnormality or erosive changes. Electronically Signed: Patricio Patricia MD at 14:52 EDT Reading Location ID and State: [address] [place] [address] , Service support , CC: Dr. Varsha Harrell MD Donor Relations Manager: Signed Normal [facility] Rheumatoid Factoron 01-10-20 RHEUMATOID FAC < 10.0 Normal <15 [facility] Comment on above: Performed By: #### L 3100.5475, L505.7010, L101.9900, L100.0100, L501.1400, L501.6710 #### [facility] [address] [place], [address] Uric Acidon 01-10-2024 URIC 9.1 mg/dL High 2.6-6.0 [facility] Comment on above: Result Comment: The drugs N-Acetylcysteine and Metamizole may falsely depress this assay. Performed By: #### L 3100.5475, L505.7010, L101.9900, L100.0100, L501.1400, L501.6710 #### [facility] [place], [address] Basophil percentageOrdered B y: Dr. Harrell on 07-06-2022 Chloride [Moles/Vol] 110 mmol/L 98-107 [facility] Cholesterol [Mass/Vol] 178 mg/dL <[address] [facility] Comment on above: <200 mg/dL Desirable 200-240 mg/dL Borderline >240 mg/dL High Risk Glucose [Mass/Vol] 94 mg/dL 74-106 [facility] Potassium [Moles/Vol] 4.0 mmol/L 3.5-5.1 [facility] Sodium [Moles/Vol] 141 mmol/L 136-145 [facility] Triglyceride [Mass/Vol] 174 mg/dL <199 [facility] Comment on above: The drugs N-Acetylcy steine and Metamizole may falsely depress this assay.Serum Triglycerides Reference Interval Normal <150 mg/dL Borderline high 150 - 199 mg/dL High 200 - 499 mg/dL Very High > or = 500 mg/dL Laboratory - Chemistry and C hemistry - challengeOrdered By: Dr. Harrell on 07-06-2022 CO2 [Moles/Vol] 27.0 mmol/L 21.0-32.0 [facility] T4 [Mass/Vol] 9.2 ug/dL 4.8-13.9 [facility] Urea nitrogen/Creatinine [Mass ratio] 21.2 mg/mg 10-20 [facility] No Panel InformationOrdered By: Dr. Harrell on 07-06-2022 Estimated GFR (MDRD) Amer 87 mL/min >60 [facility] Comment on above: GFR Calc Estimated GFR (MDRD) Non-Af Amer 72 mL/min >60 [facility] Comment on above: Non- GFR Calc Thyroid Stimulating Hormone (TSH) 1.16 uIU/mL 0.358-3.74 [facility] Serum or plasma calcium chino urement (mass/volume)Ordered By: Dr. Harrell on 07-06-2022 Calcium [Mass/Vol] 8.9 mg/dL 8.5-10.1 [facility] Serum or plasma cholesterol in HDL measurement (mass/volume)Ordered By: Dr. Harrell on 07-06-2022 Cholesterol in HDL [Mass/Vol] 46 mg/dL >40 [facility] Comment on above: The drugs N-Acetylcy steine and Metamizole may falsely depress this assay. Reference Range HDL <40 mg/dL Low HDL Cholesterol HDL >or= 60 mg/dL High HDL Cholesterol Serum or plasma cholesterol in VLDL measurement (mass/volume)Ordered By: Dr. Harrell on 07-06-2022 Cholesterol in VLDL [Mass/Vol] 35 mg/dL 5-40 [facility] Serum or plasma creatinine m easurement (mass/volume)Ordered By: Dr. Harrell on 07-06-2022 Creatinine [Mass/Vol] 0.85 mg/dL 0.55-1.02 [facility] Comment on above: The validity of the calculated GFR & GFRAA in patients over 70 years has not been determined. Clinical correlation is essential. Serum or plasma low density lipoprotein (LDL) cholesterol measurement (mass/volume)Ordered By: Dr. Harrell on 07-06-2022 Cholesterol in LDL [Mass/Vol] 97 mg/dL 0-130 [facility] Serum or plasma urea nitroge n measurement (mass/volume)Ordered By: Dr. Harrell on 07-06-2022 Urea nitrogen [Mass/Vol] 18 mg/dL 7-18 [facility] Thin prep Papanicolaou smear with manual screeningOrdered By: Dr. Harrell on 07-06-2022 Thin prep Papanicolaou smear with manual screening 4 5-15 [facility] Basophil percentageon 2021 Chloride [Moles/Vol] 107 mmol/L 98-107 [facility] Work Phone: Glucose [Mass/Vol] 100 mg/dL 74-106 [facility] Work Phone: Comment on above: Fasting Glucose resu lt from 100 to 125 mg/dL suggests IMPAIRED HOMEOSTASIS per A.D.A. criteria. Potassium [Moles/Vol] 4.5 mmol/L 3.5-5.1 [facility] Work Phone: Sodium [Moles/Vol] 141 mmol/L 136-145 [facility] Work Phone: Laboratory - Chemistry and C hemistry - challengeon 01-09-2022 CO2 [Moles/Vol] 27.0 mmol/L 21.0-32.0 [facility] Work Phone: T4 [Mass/Vol] 11.0 ug/dL 4.8-13.9 [facility] Work Phone: Urea nitrogen/Creatinine [Mass ratio] 15.7 mg/mg 10-20 [facility] Work Phone: No Panel Informationon 01-09 Estimated GFR (MDRD) Amer 76 mL/min >60 [facility] Work Phone: Comment on above: GFR Calc Estimated GFR (MDRD) Non-Af Amer 63 mL/min >60 [facility] Work Phone: Comment on above: Non- GFR Calc Thyroid Stimulating Hormone (TSH) 1.76 uIU/mL 0.358-3.74 [facility] Work Phone: Serum or plasma calcium chino urement (mass/volume)on 01-09-2022 Calcium [Mass/Vol] 9.2 mg/dL 8.5-10.1 [facility] Work Phone: Serum or plasma creatinine m easurement (mass/volume)on 01-09-2022 Creatinine [Mass/Vol] 0.96 mg/dL 0.55-1.02 [facility] Work Phone: Comment on above: The validity of the calculated GFR & GFRAA in patients over 70 years has not been determined. Clinical correlation is essential. Serum or plasma urea nitroge n measurement (mass/volume)on 01-09-2022 Urea nitrogen [Mass/Vol] 15 mg/dL 7-18 [facility] Work Phone: Thin prep Papanicolaou smear with manual screeningon 01-09-2022 Thin prep Papanicolaou smear with manual screening 7 5-15 [facility] Work Phone: Vital Signs Date Time Vital Sign Value Performing Clinician Ayan ho 12-16-2021 09:48-0400 Diastolic blood pressure 78 mm[Hg] Dr. Varsha Harrell Work Phone: [facility] Work Phone: 12-16-2021 09:48-0400 Systolic blood pressure 132 mm[Hg] Dr. Varsha Harrell Work Phone: [facility] Work Phone: 12-16-2021 09:44-0400 Body temperature 98.2 [degF] Dr. Varsha Harrell Work Phone: [facility] Work Phone: 12-16-2021 09:44-0400 Heart rate 79 /min Dr. Varsha Harrell Work Phone: [facility] Work Phone: 12-16-2021 09:44-0400 Respiratory rate 16 /min Dr. Varsha Harrell Work Phone: [facility] Work Phone: 12-16-2021 09:44-0400 SaO2% (BldA) [Mass fraction] 99 % Dr. Varsha Harrell Work Phone: [facility] Work Phone: 12-16-2021 09:17-0400 Body height 167.[address] Varsha Harrell Work Phone: [facility] Work Phone: 12-06-2021 13:15-0400 Body mass index (BMI) [Ratio] 36.6 kg/m2 Dr. Varsha Harrell Work Phone: [facility] Work Phone: 12-06-2021 13:15-0400 Body temperature 98 [degF] Dr. Varsha Harrell Work Phone: [facility] Work Phone: 12-06-2021 13:15-0400 Body weight 102.[address] Varsha Harrell Work Phone: [facility] Work Phone: 12-06-2021 13:15-0400 Diastolic blood pressure 82 mm[Hg] Dr. Varsha Harrell Work Phone: [facility] Work Phone: 12-06-2021 13:15-0400 Heart rate 71 /min Dr. Varsha Harrell Work Phone: [facility] Work Phone: 12-06-2021 13:15-0400 Respiratory rate 17 /min Dr. Varsha Harrell Work Phone: [facility] Work Phone: 12-06-2021 13:15-0400 SaO2% (BldA) [Mass fraction] 99 % Dr. Varsha Harrell Work Phone: [facility] Work Phone: 12-06-2021 13:15-0400 Systolic blood pressure 130 mm[Hg] Dr. Varsha Harrell Work Phone: [facility] Work Phone: 12-04-2021 15:13-0400 Body mass index (BMI) [Ratio] 37.1 kg/m2 Dr. Varsha Harrell Work Phone: [facility] Work Phone: 12-04-2021 15:13-0400 Body weight 104.[address] Varsha Harrell Work Phone: [facility] Work Phone: 12-04-2021 15:13-0400 Diastolic blood pressure 80 mm[Hg] Dr. Varsha Harrell Work Phone: [facility] Work Phone: 12-04-2021 15:13-0400 Systolic blood pressure 134 mm[Hg] Dr. Varsha Harrell Work Phone: [facility] Work Phone: Encounters Encounter Date Encounter Type Care Provider Facility Start: 11-17-2024 End: 11-17-[address] Dagoberto Srivastava MD Work Phone: [facility] [place] Start: 11-17-2024 End: 11-17-[address] Dagoberto Srivastava MD -[facility] [place] Work Phone: Start: 11-17-2024 End: 11-17-2024 ambulatory Dagoberto Srivastava Facility:[facility] Start: 07-03-2024 End: 07-03-[address] 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 Melissa Liz MD -Outpatient [facility] Work Phone: Start: 05-18-2024 End: 05-18-2024 ambulatory Varsha Harrell Facility:[facility] Start: 04-19-2024 ambulatory Varsha S Julio Cesar Facility: [facility] Start: 02-11-2024 Encounter for gynecological examination (general) (routine) without abnormal findings Melissa Liz [facility] Start: 02-11-2024 End: 02-11-2024 ambulatory Varsha S Julio Cesar Facility:[facility] Start: 02-11-2024 End: 02-11-2024 ambulatory Varsha S Julio Cesar Facility:[facility] Start: 01-10-2024 End: 01-10-2024 ambulatory Varsha S Jolliff Facility:[facility] Start: 07-06-2022 End: 07-06-2022 ambulatory [facility] Work Phone: Start: 07-06-2022 End: 07-06-2022 Patient encounter procedure [facility] Start: 05-26-2022 End: 05-26-2022 Patient encounter procedure [facility] Start: 01-09-2022 End: 01-09-[address] Varsha Harrell Work Phone: [facility] Work Phone: Start: 01-09-2022 End: 01-09-[address] Varsha Harrell Work Phone: [facility] Start: 12-16-2021 End: 12-16-[address] Varsha Harrell Work Phone: [facility] Start: 12-06-2021 End: 12-06-[address] Varsha Harrell Work Phone: [facility] Start: 12-04-2021 End: 12-04-[address] Varsha Harrell Work Phone: [facility] Procedures Date Procedure Procedure Detail Performing Clinician Start: 05-18-2024 Dual energy X-ray absorptiometry Dr. Varsha Harrell MD Work Phone: Start: 05-18-2024 Screening mammography Shad Harrell MD Work Phone: Start: 05-26-2022 Screening mammography Immunizations Immunization Date Immunization Notes Care Provider Fa [facility] 05-31-2020 Covid (Moderna) Dr. Varsha bolden Work Phone: [facility] 05-03-2020 Covid (Moderna) Dr. Varsha bolden Work Phone: [facility] Payers Date Payer Category Payer Self-pay [id number] 2022 Unknown [id number] 2016 Unknown [id number] Unknown [id number] 2.16.8 [id number] Unknown [id number] 2.16.8 [id number] Unknown [id number] 2.16.8 [id number] Unknown [id number] 2.16.8 [id number] Unknown [id number] 2.16.8 [id number] Unknown [id number] 2.16.8 [id number] Unknown [id number] 2.16.8 [id number] Social History Date Type Detail Facility Start: 12-16-2021 Tobacco smoking stat [facility] Unknown if ever smoked [facility] Start: 1960 Sex Assigned At Female [facility] Start: 09-20-2023 Tobacco smoking stat [facility] Never smoked tobacco (finding) [facility] Start: 07-10-2024 Sex Female (finding) [facility] Evaluation note Note Date & Type Note Facility Evaluation note Diagnosis Onset Date Encounter for routine gyneco logical examination noneactive Laceration of right hand acu te [facility] Work Phone: Evaluation note Note Date & Type Note Facility Evaluation note No assessment information availa ble [facility] Work Phone: Reason for referral (narrative) Note Date & Type Note Facility Reason for referral (narrative) No reason for referral information available [facility] Work Phone: Chief Complaint and Reason for Visit Chief Complaint 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) LACERATION RIGHT HAND SUTURE REMOVAL Reason for Visit Encounter for routin e gynecological examination Laceration of right hand Chief Complaint SCREENING Chief Complaint Admit Date SCREENING [facility] JACOBO May 18, 2024 8 :00am EORDER July 03, 2024 3:2 0pm Family History No Family History Records Found Relationship Condition Age at Onset Recorded Date/T rm father Hypertension Unknown Transient ischemic attack Unknown mother Hypertension Unknown Malignant neoplasm Unknown Hyperlipidemia Unknown brother Coronary artery disease Unknown History of coronary artery bypass surgery Unknown Myocardial infarction Unknown Summary Purpose Advance Directives No Advanced Directives Records Found Additional Source Comments Goals (unrecognized section and content) Goals may be documented in a n alternate sectionGoals may be documented in an alternate sectionGoals may be documented in an alternate sectionGoals may be documented in an alternate section Care Teams (unrecognized sec tion and content) Team Status: Active Member Role Status Dates Dr. Varsha Harrell MD Family Provider Active Dr. Varsha Harrell MD Primary Care Provider Active Team Status: Inactive Member Role Status Dates Dr. Varsha Harrell MD Primary Care Provider Active Dr. Melissa Liz MD Attending Provider, Referr ing Provider Active Team Status: Inactive Member Role Status Dates Dr. Varsha Harrell MD Primary Care Provider, Attendin g Provider Active Team Status: Active Member Role Status Dates Dr. Varsha Harrell MD Primary Care Provider Active Team Status: Inactive Member Role Status Dates Dr. Varsha Harrell MD Primary Care Provider Active Start: May 18, 2024 End: May 18, 2024 Dr. Melissa Liz MD Attending Provider Active Start: May 18, 2024 End: May 18, 2024 Dr. Melissa Liz MD Referring Provider Active Start: May 18, 2024 End: May 18, 2024 Team Status: Inactive Member Role Status Dates Dr. Varsha Harrell MD Primary Care Provider Active Start: July 03, 2024 End: July 03, 2024 Sincere Hung MANAGER [employer]CH[employer], [employer] Attending Provider Active Start: July 03, 2024 End: July 03, 2024 Sincere Hung MANAGER [employer]CH[employer]ISING, [employer] Referring Provider Active Start: July 03, 2024 End: July 03, 2024 Team Status: Active Member Role/Relationship Status Dates Dr. Dagoberto Srivastava MD Primary Care Provider Active Team Status: Inactive Member Role/Relationship Status Dates Dr. Dagoberto Srivastava MD Primary Care Provider Active Start: November 17, 2024 End: November 17, 2024 Dr. Dagoberto Srivastava MD Attending Provider Active St art: November 17, 2024 End: November 17, 2024 Dr. Dagoberto Srivastava MD Referring Provider Active St art: November 17, 2024 End: November 17, 2024 INFORMATION SOURCE (unrecogn ized section and content) DATE CREATED AUTHOR 11/25/2024 [facility] FOR RECORDS PERTAINING TO PATIENTS WHO ARE OR HAVE BEEN ENROLLED IN A CHEMICAL DEPENDENCY/SUBSTANCEABUSE PROGRAM, SOME INFORMATION MAY BE OMITTED. This clinical summary was aggregated from multiple sources. Caution should be exercised in using it in the provision of clinical care. This summary normalizes information from multiple sources, and as a consequence, information in this document may materially change the coding, format and clinical context of patient data. In addition, data may be omitted in some cases. CLINICAL DECISIONS SHOULD BE BASED ON THE PRIMARY CLINICAL RECORDS. [employer] provides no warranty or guarantee of the accuracy or completeness of information in this document.
[2025-03-24 12:20] LABS: Uric Acid 7.7 mg/dL (2.6-6.0)
== END | disposition home or self-care (01) ==
LOC: LAB 10:58
PROVIDERS: PCP Family Medicine; Referring Provider Orthopaedic Surgery; Visit Provider Orthopaedic Surgery
DX: M10.9 Gout, unspecified (principal)
CPT/HCPCS: 36415; 84550